=== PATIENT | female | born 1945 | race Caucasian/White ===

== ENCOUNTER → 2019-10-03 13:48 | Outpatient (CLI) | payer MEDICARE, BC, SELFPAY ==
--- NOTE | ~2019-10-03 | MM_ITS ---
EXAMINATION: MM screening bianca RT w rosaura HISTORY: Screening right mammogram, history of left mastectomy TECHNIQUE: Craniocaudal and mediolateral oblique 3-D tomosynthesis images were obtained and synthetic 2-D images were generated. CAD analysis was submitted and interpreted. COMPARISON: 09/12/2018, 08/03/2017, 07/09/2016 BREAST PARENCHYMAL COMPOSITION: There are scattered areas of fibroglandular density. FINDINGS: There is no evidence of suspicious mass, calcification, or architectural distortion to sugg est malignancy in either breast. There has been no suspicious interval change. IMPRESSION: 1. No mammographic evidence of malignancy. 2. Recommend routine screening mammography in one year. BI-RADS Category 1: Negative Reviewed, dictated and finalized at location A. 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
== END ==
PROVIDERS: PCP Internal Medicine Endocrinology, Diabetes & Metabolism; Visit Provider Obstetrics & Gynecology Gynecology
DX: Z12.31 Encounter for screening mammogram for malignant neoplasm of breast (principal)
CPT/HCPCS: 77063; 77067

== ENCOUNTER → 2020-04-25 09:19 | Outpatient (CLI) | payer MEDICARE, BC, SELFPAY ==
--- NOTE | ~2020-04-25 | US_ITS ---
EXAMINATION: US soft tissue head and neck DATE: 04/25/2020 09:34 INDICATION: Left neck mass. Enlarged lymph node. TECHNIQUE: Multiple grayscale and Doppler ultrasound images of the neck were obtained. COMPARISON: None FINDINGS: There is no abnormal mass or lymphadenopathy in the patient's area of concern in left neck. IMPRESSION: 1. No abnormal mass or lymphadenopathy in the patient's area of concern in left neck. Reviewed, dictated and finalized at location B.
== END ==
PROVIDERS: Visit Provider Obstetrics & Gynecology Gynecology
DX: R59.0 Localized enlarged lymph nodes (principal)
CPT/HCPCS: 76536

== ENCOUNTER → 2020-06-17 12:18 | Outpatient (CLI) | payer MEDICARE, BC, SELFPAY ==
--- NOTE | ~2020-06-17 | DEXA_ITS ---
Bone Density Report Name: Ellen Blunt Age: 74 Sex: Female Ethnicity: White Date of : 1945 Indication: osteopenia; monitoring treatment; hysterectomy; postmenopausal Referring Provider: CHARO RUTH Study: Bone densitometry was performed. Exam Date: June 17, 2020 Accession number: [id number] Bone Density: Region BMD T-score Z-score Classification AP Spine (L1-L4) 0.887 -1.5 0.9 Osteopenia Femoral Neck (Left) 0.652 -1.8 0.2 Osteopenia Total Hip (Left) 0.776 -1.4 0.3 Osteopenia Femoral Neck (Right) 0.629 -2.0 0.0 Osteopenia Total Hip (Right) 0.741 -1.7 0.0 Osteopenia Total Hip Mean 0.759 -1.6 0.2 Osteopenia World Health Organization criteria for BMD impression classify patients as: Normal (T-score at or above -1.0), Osteopenia (T-score between -1.0 and -2.5), or Osteoporosis (T-score at or below -2.5). 10-year Fracture Risk: FRAX not reported because: Treated for osteoporosis Previous Exams: Region Exam Age BMD T-score BMD Change BMD Change Date g/cm2 vs Baseline vs Previous AP Spine(L1-L4) 06/17/2020 74 0.887 -1.5 -0.002 0.047* 05/10/2018 72 0.839 -1.9 -0.049* 0.012 07/07/2015 69 0.827 -2.0 -0.062* -0.006 06/22/2013 67 0.833 -1.9 -0.055* -0.065* 01/18/2011 65 0.898 -1.4 0.010 0.018 01/01/2009 63 0.880 -1.5 -0.009 0.044* 10/27/2006 60 0.836 -1.9 -0.053* -0.053* 10/13/2004 58 0.888 -1.4 Total Hip(Left) 06/17/2020 74 0.776 -1.4 -0.059* 0.019 05/10/2018 72 0.757 -1.5 -0.078* -0.010 07/07/2015 69 0.767 -1.4 -0.068* -0.057* 06/22/2013 67 0.825 -1.0 -0.010 -0.006 01/18/2011 65 0.831 -0.9 -0.005 0.028* 01/01/2009 63 0.802 -1.1 -0.033* 0.002 10/27/2006 60 0.800 -1.2 -0.035* -0.035* 10/13/2004 58 0.835 -0.9 Total Hip(Right) 06/17/2020 74 0.741 -1.7 -0.100* 0.003 05/10/2018 72 0.738 -1.7 -0.102* 0.014 07/07/2015 69 0.724 -1.8 -0.116* -0.076* 06/22/2013 67 0.800 -1.2 -0.040* 0.004 01/18/2011 65 0.796 -1.2 -0.044* -0.006 01/01/2009 63 0.803 -1.1 -0.037* 0.015 10/27/2006 60 0.788 -1.3 -0.052* -0.052* 10/13/2004 58 0.840 -0.8 *Denotes significance at 95% confidence level, LSC for AP Spine
== END ==
PROVIDERS: Visit Provider Obstetrics & Gynecology Gynecology
DX: M85.80 Other specified disorders of bone density and structure, unspecified site (principal); Z78.0 Asymptomatic menopausal state; Z13.820 Encounter for screening for osteoporosis
CPT/HCPCS: 77080

== ENCOUNTER → 2020-12-19 10:21 | Outpatient (CLI) | payer MEDICARE, BC, SELFPAY ==
--- NOTE | ~2020-12-19 | MMUS_ITS ---
EXAMINATION: MM diagnostic bianca RT w rosaura, US breast RT limited HISTORY: Painful lump in the upper outer quadrant of the right breast, history of left mastectomy. TECHNIQUE: Craniocaudal, mediolateral, and mediolateral oblique 3-D tomosynthesis images of the right breast were performed and synthetic 2-D images were generated. CAD analysis was submitted and interp reted. High resolution limited right breast ultrasound was performed. COMPARISON: 10/03/2019, 09/12/2018, 08/03/2017 BREAST PARENCHYMAL COMPOSITION: There are scattered areas of fibroglandular density. FINDINGS: MAMMOGRAPHIC FINDINGS: There is no evidence of suspicious mass, calcification, or architectural distortion to suggest malig armida. There has been no suspicious interval change. No mammographic correlate is identified for the reported painful lump of the right breast. ULTRASOUND: There is no evidence of focal abnormal solid or cystic mass in the vicinity of the reported painful r ight breast lump. IMPRESSION: 1. No specific mammographic or sonographic correlate is identified for the reported painful lump of t he right breast. Further evaluation at this time should be based on clinical assessment. Continued fo llow-up physical examination is recommended. 2. Recommend routine screening mammography in one year. BI-RADS Category 1: Negative Reviewed, dictated and finalized at location A. IMPRESSION: 1. No specific mammographic or sonographic correlate is identified for the repo rted painful lump of the right breast. Further evaluation at this time should b e based on clinical assessment. Continued follow-up physical examination is rec ommended. 2. Recommend routine screening mammography in one year. BI-RADS Category 1: Negative
== END ==
PROVIDERS: PCP Internal Medicine; Visit Provider Nurse Practitioner
DX: R92.8 Other abnormal and inconclusive findings on diagnostic imaging of breast (principal)
CPT/HCPCS: 76642; 77061; 77065; G0279

== ENCOUNTER 2022-06-03 01:49 | Day surgery (SDC) | payer MEDICARE, BC, SELFPAY ==
[2022-05-19 08:37] VITALS: BMI 25.2
[2022-06-03 07:51] VITALS: BP 124/82; PULSE 77; RESP 17; TEMP 36.7; O2SAT 96; BMI 25.0
[2022-06-03] MEDS: LACTATED RINGERS 1,000 ML 150 ML IV CONT (08:04)
--- NOTE | 2022-06-03 08:42 | PM.HPGS ---
History of Present Illness History of Present Illness Consent: Risks, benefits, and alternatives have been discussed and questions answered. Patient agrees to proceed with procedure. Chief complaint: Rectal bleeding Narrative: Ellen Blunt is a 76 year old female Presents for colonoscopy. Patient states she has a long history of hemorrhoids. She intermittently will have bright red blood per rectum and rectal tenderness. She notes over the last 1 month that occasionally blood streaks will occur on stool. She presents today for colonoscopy. Patient states that her bowel habits in general are normal and regular. Her family history is significant for a grandparent that may have had colon cancer. Patient presents today for neoplasia screening colonoscopy. Review of Systems Review of Systems: Review of systems noncontributory. [facility] Family History Family History (Updated 04/25/14 @ 07:13 by DOCTOR UNKNOWN) Mother Family history of pancreatic cancer Family history of dementia Father Family history of heart disease in male family member before age 55 Other Family history of arthritis Hypertension Social History Social History Smoking status: Never smoker Alcohol intake: current Alcohol use details: Social use Substance use type: does not use Living arrangements: with family Spiritual care concerns: No Meds Home Medications and Allergies Home Medications Medication Instructions Recorded Confirmed Type coQ10 (ubiquinol) 200 mg capsule 200 mg PO 2XW 05/19/22 06/03/22 History ergocalciferol (vitamin D2) 1,250 50,000 unit PO WEEKLY 05/19/22 06/03/22 History mcg (50,000 unit) capsule escitalopram oxalate 20 mg tablet 20 mg PO DAILY 05/19/22 06/03/22 History magnesium citrate 100 mg tablet 200 mg PO DAILY 05/19/22 06/03/22 History rosuvastatin 10 mg tablet 10 mg PO 4XW 05/19/22 06/03/22 History Allergies Allergy/AdvReac Type Severity Reaction Status Date / Time Penicillins Allergy Unknown Other Verified 06/03/22 07:50 Sulfa (Sulfonamide Allergy Unknown rash Verified 06/03/22 07:50 Antibiotics) sulfanilamide Allergy Unknown Other Verified 06/03/22 07:50 Vital Signs Vital Signs - 24 hr 06/03/22 07:51 Temperature 98.1 F Pulse Rate 77 Respiratory Rate 17 Blood Pressure 124/82 Pulse Oximetry 96 Oxygen Delivery Room Air Exam Narrative: Physical exam reveals patient to be alert. Vital signs stable. HEENT exam is unremarkable. Patient is anicteric. Lungs are clear to auscultation and percussion. Heart is without murmur or extra sounds. Abdomen bowel sounds are present soft nontender with no organomegaly. Digital external rectal exam is normal. Assessment and Plan Assessment and plan (1) Rectal bleeding: Code(s): K62.5 - Hemorrhage of anus and rectum Status: Acute Assessment and Plan: Patient has rectal bleeding most consistent with hemorrhoids. Plan is for colonoscopy to exclude additional lesions. Highfiber, stool softener suggested. Anusol or similar soothing cream is advised. Would consider surgical therapy if no other lesions identified.
[2022-06-03 09:17] VITALS: BP 112/62; PULSE 63; RESP 13; O2SAT 99
[2022-06-03 09:27] VITALS: BP 112/54; PULSE 57; RESP 14; O2SAT 98
[2022-06-03 09:37] VITALS: BP 116/66; PULSE 61; RESP 19; O2SAT 98
== END 2022-06-03 09:42 | disposition home or self-care (01) ==
PROVIDERS: PCP Internal Medicine; Visit Provider Internal Medicine Gastroenterology
PROC: 0DJD8ZZ Inspection of Lower Intestinal Tract, Via Natural or Artificial Opening Endoscopic (ICD-10-PCS; CPT 45378; principal; 2022-06-03 09:00)
DX: K62.5 Hemorrhage of anus and rectum (principal); K64.8 Other hemorrhoids; K64.4 Residual hemorrhoidal skin tags
CPT/HCPCS: 45378; J2704; J7120

== ENCOUNTER → 2022-11-25 10:57 | Outpatient (CLI) | payer MEDICARE, BC, SELFPAY ==
--- NOTE | ~2022-11-25 | DEXA_ITS ---
Bone Density Report Name: Ellen Blunt Age: 76 Sex: Female Ethnicity: White Date of : 1945 Indication: osteopenia; hysterectomy; postmenopausal Referring Provider: CHARO RUTH Study: Bone densitometry was performed. Exam Date: November 25, 2022 Accession number: [id number] Bone Density: Region BMD T-score Z-score Classification AP Spine (L1-L4) 0.876 -1.6 0.9 Osteopenia Femoral Neck (Left) 0.650 -1.8 0.3 Osteopenia Total Hip (Left) 0.768 -1.4 0.4 Osteopenia Femoral Neck (Right) 0.659 -1.7 0.4 Osteopenia Total Hip (Right) 0.737 -1.7 0.1 Osteopenia Total Hip Mean 0.753 -1.6 0.3 Osteopenia World Health Organization criteria for BMD impression classify patients as: Normal (T-score at or above -1.0), Osteopenia (T-score between -1.0 and -2.5), or Osteoporosis (T-score at or below -2.5). 10-year Fracture Risk(1): Major Osteoporotic Fracture 13% Hip Fracture 2.9% Reported Risk Factors: [place] (), Neck BMD=0.659, BMI=25.7 (1) FRAX(R) Version 3.08. Fracture probability calculated for an untreated patient. Fracture probability may be lower if the patient has received treatment. Previous Exams: Region Exam Age BMD T-score BMD Change BMD Change Date g/cm2 vs Baseline vs Previous AP Spine(L1-L4) 11/25/2022 76 0.876 -1.6 -0.013 -0.011 06/17/2020 74 0.887 -1.5 -0.002 0.047* 05/10/2018 72 0.839 -1.9 -0.049* 0.012 07/07/2015 69 0.827 -2.0 -0.062* -0.006 06/22/2013 67 0.833 -1.9 -0.055* -0.065* 01/18/2011 65 0.898 -1.4 0.010 0.018 01/01/2009 63 0.880 -1.5 -0.009 0.044* 10/27/2006 60 0.836 -1.9 -0.053* -0.053* 10/13/2004 58 0.888 -1.4 Total Hip(Left) 11/25/2022 76 0.768 -1.4 -0.068* -0.009 06/17/2020 74 0.776 -1.4 -0.059* 0.019 05/10/2018 72 0.757 -1.5 -0.078* -0.010 07/07/2015 69 0.767 -1.4 -0.068* -0.057* 06/22/2013 67 0.825 -1.0 -0.010 -0.006 01/18/2011 65 0.831 -0.9 -0.005 0.028* 01/01/2009 63 0.802 -1.1 -0.033* 0.002 10/27/2006 60 0.800 -1.2 -0.035* -0.035* 10/13/2004 58 0.835 -0.9 Total Hip(Right) 11/25/2022 76 0.737 -1.7 -0.104* -0.004 06/17/2020 74 0.741 -1.7 -0.100* 0.003 05/10/2018 72 0.738 -1.7 -0.102* 0.014 07/07/2015 69 0.724 -1.8 -0.116* -0.076* 06/22/2013 67 0.8
== END ==
PROVIDERS: PCP Internal Medicine; Visit Provider Obstetrics & Gynecology Gynecology
DX: Z78.0 Asymptomatic menopausal state (principal); M85.88 Other specified disorders of bone density and structure, other site; M85.852 Other specified disorders of bone density and structure, left thigh; M85.851 Other specified disorders of bone density and structure, right thigh
CPT/HCPCS: 77080

== ENCOUNTER 2022-12-21 15:31 | Emergency (ER) | payer MEDICARE, BC, SELFPAY ==
[2022-12-21] VITALS (16 sets, daily range): BP systolic 127–174; BP diastolic 68–86; PULSE 59–72; RESP 11–19; TEMP 36.3–36.4; O2SAT 96–100
--- NOTE | ~2022-12-21 | CT_ITS ---
EXAMINATION: CT abdomen pelvis w con DATE: 12/21/2022 19:17 INDICATION: abdominal pain TECHNIQUE: Computed tomography (CT) of the abdomen and pelvis was performed with 100 mL Omnipaque-350 intravenous contrast. Automated exposure control and iterative reconstruction technique were employe d. The dose-length product was 311.89 mGy-cm. COMPARISON: CT abdomen and pelvis 11/29/2018, 04/12/2018 CT abdomen 11/26/2007. FINDINGS: Lower thorax: Small hiatal hernia. Mild senescent changes in the lungs. Liver: Normal. Biliary/Gallbladder: Gallbladder is normal. No bile duct dilation. 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 Spleen: Normal. Adrenals:No mass. Kidneys: Bilateral hypodensities that are too small to characterize but most likely represent cystsNo . Suspicious mass, stone, or hydronephrosis. GI tract: Mild distal esophageal and gastric wall edema. No small or large bowel dilation. Normal johnathan endix. Mesentery/Peritoneum: No ascites, mass, or free air. Retroperitoneum: No mass. Mild atherosclerotic abdominal aortic and/or arterial calcifications. Pelvis: Absent uterus. Mild bladder wall thickening and inflammatory change. Soft Tissues: Soft tissues and body wall unremarkable. Bones: No acute osseous finding. IMPRESSION: Mild esophagitis/gastritis. Mild bladder wall thickening and inflammatory change possibly representin g cystitis, correlate with urinalysis. Otherwise, no acute abdominopelvic process detected Reviewed, dictated and finalized at location K. IMPRESSION: Mild esophagitis/gastritis. Mild bladder wall thickening and inflammatory murillo e possibly representing cystitis, correlate with urinalysis. Otherwise, no acut e abdominopelvic process detected
[2022-12-21 16:39] LABS: Basophils Absolute Auto 0.1 K/mm3 (0.0-0.1); Basophils Percent Auto 0.6 % (0.2-1.2); Eosinophils Absolute Auto 0.2 K/mm3 (0-0.3); Eosinophils Percent Auto 2.2 % (0-4.4); Hematocrit 39.4 % (37.0-47.0); Hemoglobin 12.7 g/dL (12.0-15.0); Immature Granulocyte Absolute 0.02 K/mm3 (0.00-0.031); Immature Granulocyte Percent A 0.2 % (0-0.5); Lymphocytes Absolute Auto 2.38 K/mm3 (0.9-3.2); Lymphocytes Percent Auto 28.8 % (18.3-44.2); Mean Corpuscular HGB Conc 32.2 g/dl (32-36); Mean Corpuscular Hemoglobin 30.6 pg (26-34); Mean Corpuscular Volume 94.9 fl (80-100); Mean Platelet Volume 10.6 fl (7.4-10.4); Monocytes Absolute Auto 0.6 K/mm3 (0.1-0.6); Monocytes Percent Auto 6.9 % (2.6-8.5); Neutrophils Absolute Auto 5.1 K/mm3 (1.3-6.7); Neutrophils Percent Auto 61.3 % (45.5-73.1); Platelet Count Result 292 k/mm3 (150-375); Red Blood Count 4.15 M/mm3 (4.2-5.4); White Blood Count 8.3 K/mm3 (4.5-10.0)
[2022-12-21 16:50] LABS: Alanine Aminotransferase 23 U/L (6-35); Albumin Level 4.7 g/dL (3.5-5.1); Alkaline Phosphatase 69 U/L (38-126); Anion Gap 8 mmol/L (8-16); Aspartate Amino Transferase 30 U/L (14-36); Bilirubin,Total 0.5 mg/dL (0.2-1.3); Blood Urea Nitrogen 13 mg/dL (7-17); Calcium 9.3 mg/dL (8.4-10.2); Carbon Dioxide 32 mmol/L (22-30); Chloride 101 mmol/L (98-107); Estimated CRCL calculation 59 ml/min; Estimated Glomerular Filt Rate > 60; Glucose 90 mg/dL (65-110); Lipase 87 U/L (23-300); Potassium 4.1 mmol/L (3.4-5.0); Sodium 141 mmol/L (137-145)
[2022-12-21 17:56] LABS: Appearance Urine Clear (Clear); Bilirubin Urine Negative (Negative); Blood Urine Negative (Negative); Color Urine Yellow (Yellow); Glucose Urine UA Negative (Negative); Ketones Urine Negative (Negative); Leukocyte Esterase Ur Negative LEU/UL (Negative); Nitrate Urine Negative (Negative); Protein Urine Negative (Negative); Specific Grav Ur 1.012 (1.001-1.035); Urobilinogen Urine 0.2 mg/dL (<2.0); pH Urine 7.5 (5.0-9.0)
[2022-12-21 18:01] LABS: Add Urine Microscopic? NO
--- NOTE | 2022-12-21 18:25 | ED.GENADULT ---
HPI - General Adult General Chief complaint: Abdominal Pain Stated complaint: left abd pain Time Seen by Provider: 12/21/22 18:08 History of Present Illness HPI narrative: 76 yo female presents for eval of L sided abominal pain since this am. No N/V and she had a good BM this am. Related Data Home Medications Medication Instructions Recorded Confirmed coQ10 (ubiquinol) 200 mg capsule 200 mg PO 2XW 05/19/22 06/03/22 ergocalciferol (vitamin D2) 1,250 50,000 unit PO WEEKLY 05/19/22 06/03/22 mcg (50,000 unit) capsule escitalopram oxalate 20 mg tablet 20 mg PO DAILY 05/19/22 06/03/22 magnesium citrate 100 mg tablet 200 mg PO DAILY 05/19/22 06/03/22 rosuvastatin 10 mg tablet 10 mg PO 4XW 05/19/22 06/03/22 Allergies Allergy/AdvReac Type Severity Reaction Status Date / Time Penicillins Allergy Unknown Other Verified 06/03/22 07:50 Sulfa (Sulfonamide Allergy Unknown rash Verified 06/03/22 07:50 Antibiotics) sulfanilamide Allergy Unknown Other Verified 06/03/22 07:50 Review of Systems Review of Systems: CONSTITUTIONAL: Denies fever, chills, or sweats. EYES: Denies visual changes, redness, or discharge. ENT: Denies rhinorrhea, congestion, sore throat, or otalgia. CARDIOVASCULAR: Denies chest pain, palpitations, or edema. RESPIRATORY: Denies cough or dyspnea. GASTROINTESTINAL: Denies abdominal pain, nausea, vomiting, or diarrhea. GENITOURINARY: Denies dysuria or hematuria. SKIN: Denies rash or itching. MUSCULOSKELETAL: Denies back pain, joint pain, or myalgia. NEUROLOGIC: Denies headache, numbness, or weakness. PSYCHIATRIC: Denies anxiety or depression. [facility] Family History Family History (Updated 04/25/14 @ 07:13 by DOCTOR UNKNOWN) Mother Family history of pancreatic cancer Family history of dementia Father Family history of heart disease in male family member before age 55 Other Family history of arthritis Hypertension Social History Social History Smoking status: Never smoker Alcohol intake: current Alcohol use details: Social use Substance use type: does not use Living arrangements: with family Spiritual care concerns: No Exam Narrative: GENERAL: Well-appearing, well-nourished, and in no acute distress. HEAD: Normocephalic, atraumatic. EYES: PERRLA and EOMI. ENT: Nares clear, no rhinorrhea or epistaxis. Mucous membranes moist. NECK: Supple. CHEST: Clear to auscultation. No respiratory distress. HEART: Regular rate and rhythm. No murmur heard. Normal peripheral pulses. ABDOMEN: Soft, right-sided tenderness, nondistended, normal active bowel sounds. EXTREMITIES: Normal range of motion. No edema. SKIN: Warm, dry, no rash. NEURO: No focal deficits. Alert and oriented x3. PSYCH: Normal mood and affect. Course Vital Signs Vital signs: Vital Signs Temperature 97.5 F L 12/21/22 15:34 Pulse Rate 72 12/21/22 15:34 Respiratory Rate 18 12/21/22 15:34 Blood Pressure 165/86 H 12/21/22 15:34 Pulse Oximetry 98 12/21/22 15:34 Oxygen Delivery Room Air 12/21/22 15:34 Temperature 97.3 F L 12/21/22 18:20 Pulse Rate 65 12/21/22 20:06 Respiratory Rate 17 12/21/22 20:06 Blood Pressure 151/71 H 12/21/22 20:06 Pulse Oximetry 100 12/21/22 20:06 Oxygen Delivery Room Air 12/21/22 18:20 Medical Decision Making [facility] Narrative Medical decision making narrative: 76-year-old female with previous fat graft from her abdomen for breast augmentation presents for evaluation of left-sided abdominal pain since this morning. TTP on exam. Screening labs and CT abdomen pelvis have been ordered. labs are unremarkable, vitals normal CT a/p pending IMPRESSION: Mild esophagitis/gastritis. Mild bladder wall thickening and inflammatory change possibly representing cystitis, correlate with urinalysis. Otherwise, no acute abdominopelvic process detected UA not indicative of cystitis and this would not be con
[2022-12-21] MEDS: MORPHINE SULFATE (*CRX) 2 MG/ML INJ IV PUSH (20:39)
== END 2022-12-21 21:26 | disposition home or self-care (01) ==
PROVIDERS: Emergency Provider Emergency Medicine; PCP Internal Medicine
DX: R10.9 Unspecified abdominal pain (principal)
CPT/HCPCS: 36415; 74177; 80053; 81003; 83690; 85025; 96374; 99284; J2270; Q9967

== ENCOUNTER 2023-04-25 11:35 | Outpatient (CLI) | payer MEDICARE, BC, SELFPAY ==
--- NOTE | ~2023-04-25 | XR_ITS ---
Left wrist Technique: PA, oblique, lateral, and ulnar deviation views were obtained. Clinical History: Ulnar swelling Findings: No acute fracture or dislocation is seen. Osseous alignment is anatomic. Joint spaces are p reserved. Soft tissues are unremarkable. Impression: Unremarkable left wrist radiographs. Reviewed, dictated and finalized at location . Impression: Unremarkable left wrist radiographs.
== END 2023-04-25 11:36 | disposition home or self-care (01) ==
PROVIDERS: PCP Internal Medicine; Visit Provider Plastic Surgery
DX: M19.032 Primary osteoarthritis, left wrist (principal)
CPT/HCPCS: 73110

== ENCOUNTER 2023-06-26 08:20 | Observation (INO) | payer MEDICARE, BC, SELFPAY ==
[2023-06-26] VITALS (13 sets, daily range): BP systolic 92–159; BP diastolic 55–93; PULSE 64–81; RESP 13–19; TEMP 36.1–36.5; O2SAT 94–100; BMI 25.4
--- NOTE | ~2023-06-26 | CT_ITS ---
EXAMINATION: CTA chest abdomen pelvis DATE: 06/26/2023 09:05 INDICATION: Chest and epigastric abdominal pain, pressure. TECHNIQUE: Computed tomography (CT) of the chest, abdomen, and pelvis was performed with 100 CC Omnip aque 350 intravenous contrast. Automated exposure control and iterative reconstruction technique were employed. Exam dose: 522.25 mGy-cm total exam DLP. COMPARISON: 06/26/2023 2 view chest is not available at this time 12/21/2022 CT abdomen pelvis FINDINGS: CHEST CT: Prominent bilateral apical scarring, particularly involving both posterior apical areas, right greate r than left. No pulmonary infiltrate or consolidation or pulmonary mass lesion is noted otherwise. No thoracic aortic aneurysm or dissection. No evidence of pulmonary embolism. No hilar or mediastinal mass lesion or lymphadenopathy. Heart size is within normal range. No pericardial or pleural effusion. Small sliding hiatal hernia. ABDOMEN/PELVIS CT: Diffuse hepatic steatosis. No hepatic, splenic or pancreatic space-occupying mass lesion. The gallbla dder appears unremarkable. No bile duct or pancreatic duct dilatation. Normal morphology of the adrenal glands. No renal mass lesion or urinary tract calculus or hydroureteronephrosis. The urinary bladder appears unremarkable. Status post hysterectomy. Mild colonic diverticulosis; no CT evidence of diverticulitis. Normal appendix. Fluid levels in the c ecum and ascending colon may indicate enterocolitis. No bowel obstruction, bowel wall thickening, pneumatosis or intraperitoneal free air. There is atherosclerotic calcification but normal caliber of the abdominal aorta. No abdominal aortic dissection. No intraperitoneal or retroperitoneal or pelvic mass lesion or adenopathy or ascites. Severe atrophy or failure of development of the right rectus abdominis muscle. Moderately severe degenerative disc disease at L2-3 and L5-S1. No suspicious osteolytic or osteoblast ic lesions are noted. IMPRESSION: No thoracic or abdominal aortic aneurysm or dissection Bilateral apical scarring Hepatic steatosis Diverticulosis of the colon Normal appendix Fluid levels in the cecum and ascending colon which may indicate enterocolitis Reviewed, dictated and finalized at [facility]. Reviewed, dictated and finalized at location A.
--- NOTE | ~2023-06-26 | XR_ITS ---
XR chest 2V DATE: 06/26/2023 09:11 INDICATION: Chest pressure this morning. TECHNIQUE: AP and lateral views COMPARISON: 02/10/2016 2 view chest 09/20/2008 portable AP chest FINDINGS: Moderate bilateral hyperinflation. Mild bilateral apical scarring is suggested. No pulmonar y infiltrate or consolidation, pulmonary vascular congestion or pleural effusion is detected. There are surgical clips in the left axillary region consistent with prior axillary node dissection. There is diffuse osteopenia. IMPRESSION: No active cardiopulmonary disease Status post left axillary node dissection Osteopenia Reviewed, dictated and finalized at location A.
--- NOTE | ~2023-06-26 | NM_ITS ---
EXAMINATION: NM jonathan stress w perfusion DATE: 06/27/2023 12:41 INDICATION: Chest pain TECHNIQUE: Rest images were obtained following intravenous administration of 9 mCi Tc99m tetrofosmin (Myoview). The patient was infused intravenously with Lexiscan (Regadenoson). Then, 28.6 mCi Tc99m te trofosmin (Myoview) was administered intravenously, and stress images were obtained. Data was reconst ructed into short axis and horizontal and vertical long axis SPECT images. Gated SPECT images were al so obtained. COMPARISON: None. FINDINGS: There is no definite reversible or fixed perfusion abnormality to suggest ischemia or infar ction. There is normal left ventricular chamber size, wall motion and ejection fraction. Left ventr icular ejection fraction measures 65%. IMPRESSION: 1. Normal myocardial perfusion at rest and during stress. 2. Left ventricular ejection fraction measuring 65%. Reviewed, dictated and finalized at location A.
--- NOTE | 2023-06-26 08:22 | ECG_ITS ---
Measurements Intervals [place] Rate: 78 P: 38 SC: 161 QRS: 0 QRSD: 113 T: 36 QT: 405 QTc: 463 Interpretive Statements SINUS RHYTHM BASELINE ARTIFACT SEPTAL MYOCARDIAL INFARCTION , OF INDETERMINATE AGE [40+ ms Q WAVE IN V1/V2] ABNORMAL ECG NO PREVIOUS ECG AVAILABLE FOR COMPARISON Electronically Signed On 06-26-2023 13:47:46 CDT by Frankie Noyola M.D.
[2023-06-26 08:34] LABS: Basophils Absolute Auto 0.1 K/mm3 (0.0-0.1); Basophils Percent Auto 0.7 % (0.2-1.2); Eosinophils Absolute Auto 0.2 K/mm3 (0-0.3); Eosinophils Percent Auto 2.2 % (0-4.4); Hematocrit 42.8 % (37.0-47.0); Hemoglobin 13.9 g/dL (12.0-15.0); Immature Granulocyte Absolute 0.02 K/mm3 (0.00-0.031); Immature Granulocyte Percent A 0.3 % (0-0.5); Lymphocytes Absolute Auto 2.03 K/mm3 (0.9-3.2); Mean Corpuscular HGB Conc 32.5 g/dl (32-36); Mean Corpuscular Hemoglobin 31.1 pg (26-34); Mean Corpuscular Volume 95.7 fl (80-100); Mean Platelet Volume 10.7 fl (7.4-10.4); Monocytes Absolute Auto 0.5 K/mm3 (0.1-0.6); Monocytes Percent Auto 7.2 % (2.6-8.5); Neutrophils Absolute Auto 4.5 K/mm3 (1.3-6.7); Neutrophils Percent Auto 61.6 % (45.5-73.1); Platelet Count Result 277 k/mm3 (150-375); Red Blood Count 4.47 M/mm3 (4.2-5.4); Red Cell Distribution Width 13.9 % (11.5-14.5); White Blood Count 7.3 K/mm3 (4.5-10.0)
[2023-06-26 08:44] LABS: Alanine Aminotransferase 23 U/L (6-35); Albumin Level 4.8 g/dL (3.5-5.1); Alkaline Phosphatase 78 U/L (38-126); Anion Gap 9 mmol/L (8-16); Aspartate Amino Transferase 29 U/L (14-36); Bilirubin,Total 0.7 mg/dL (0.2-1.3); Blood Urea Nitrogen 12 mg/dL (7-17); Calcium 9.6 mg/dL (8.4-10.2); Carbon Dioxide 26 mmol/L (22-30); Chloride 104 mmol/L (98-107); Estimated CRCL calculation 54 ml/min; Estimated Glomerular Filt Rate > 60; Glucose 105 mg/dL (65-110); Lipase 441 U/L (23-300); Sodium 139 mmol/L (137-145)
--- NOTE | 2023-06-26 08:47 | ED.CHESTPAIN ---
HPI - Chest Pain General Chief Complaint: Chest Pain Stated Complaint: CHEST PAIN Time Seen by Provider: 06/26/23 08:31 History of Present Illness HPI narrative: This is a 77-year-old female, with history of breast cancer, who presents emergency department complaining of chest pain. The patient states she woke this morning at approximately 730 and noticed significant chest heaviness, rated 7/10. She states the sensation goes towards her back as well as her abdomen. She denies associated weakness, numbness or loss of consciousness Related Data Home Medications Medication Instructions Recorded Confirmed ergocalciferol (vitamin D2) 1,250 50,000 unit PO WEEKLY 05/19/22 06/03/22 mcg (50,000 unit) capsule rosuvastatin 10 mg tablet 10 mg PO 4XW 05/19/22 06/03/22 cyclosporine 0.05 % eye drops in a drp 06/26/23 dropperette escitalopram oxalate 10 mg tablet 10 mg PO DAILY 06/26/23 06/26/23 multivit with minerals-iron 18 1 tablet PO DAILY 06/26/23 06/26/23 mg-folic ac 400 mcg-vit K 25 mcg tablet (Adults Multivitamin) Allergies Allergy/AdvReac Type Severity Reaction Status Date / Time Penicillins Allergy Unknown Other Verified 06/26/23 08:31 Sulfa (Sulfonamide Allergy Unknown rash Verified 06/26/23 08:31 Antibiotics) sulfanilamide Allergy Unknown Other Verified 06/26/23 08:31 Review of Systems Review of Systems: CONSTITUTIONAL: Denies fever, chills, or sweats. CARDIOVASCULAR: Chest pain denies palpitations, or edema. RESPIRATORY: Denies cough or dyspnea. GASTROINTESTINAL: Epigastric abdominal pain denies nausea, vomiting, or diarrhea. GENITOURINARY: Denies dysuria or hematuria. SKIN: Denies rash or itching. MUSCULOSKELETAL: Back pain denies joint pain, or myalgia. NEUROLOGIC: Denies headache, numbness, dizziness, or weakness. PSYCHIATRIC: Denies anxiety or depression. [facility] Past Medical History Medical History (Updated 06/26/23 @ 13:12 by Deanna Sparks PA-C) Cancer of left breast Lymphedema Mixed hyperlipidemia Surgical History Surgical History History of left mastectomy Family History Family History Mother Family history of pancreatic cancer Family history of dementia Father Family history of heart disease in male family member before age 55 Other Family history of arthritis Hypertension Social History Social History (Updated 06/26/23 @ 13:13 by Deanna Sparks PA-C) Social History: Surrogate medical decision maker: Douglas Blunt, spouse. Code status: Full code. Smoking status: Never smoker Alcohol intake: current Alcohol use details: Social alcohol use in moderation. Substance use type: does not use Living arrangements: with family Spiritual care concerns: No Exam Narrative: GENERAL: Well-developed, well-nourished, and in no acute distress. HEAD: Normocephalic, atraumatic. EYES: PERRLA and EOMI. ENT: Nares clear, no rhinorrhea or epistaxis. Mucous membranes moist. Oropharynx without tonsillar hypertrophy exudate or other lesions. Bilateral TMs pearly church nonbulging NECK: Supple. No adenopathy or masses. No carotid bruits or JVD CHEST: Clear to auscultation. No respiratory distress. No wheezes rales or rhonchi HEART: Regular rate and rhythm. No murmur heard. Normal peripheral pulses. ABDOMEN: Soft, nontender, nondistended, normal active bowel sounds. EXTREMITIES: Normal range of motion. No edema. SKIN: Warm, dry, no rash. NEURO: Alert and oriented x3. Moving all 4 limbs purposefully. PSYCH: Normal mood and affect. Course Course Emergency Course: 08:45 - Bedside ultrasound by me is not immediately concerning for dissection of the abdominal aorta. I am concerned for dissection. Will obtain CTA. 10:15 - EKG not concerning for ischemia. Initial troponin negative. CTA not concerning for dissection. Initial troponin negat
[2023-06-26 08:48] LABS: Prothrombin Time 13.1 Seconds (11.1-14.7)
[2023-06-26 08:49] LABS: Partial Thromboplastin Time 31.9 SECONDS (22.3-36.8)
[2023-06-26] MEDS: MORPHINE SULFATE (*CRX) 4 MG/ML INJ IV PUSH (08:52)
[2023-06-26] MEDS: ONDANSETRON INJ 4 MG/2 ML VIAL IV PUSH (08:52)
[2023-06-26 08:55] LABS: Troponin I < 0.012 ng/mL (0.000-0.034)
[2023-06-26] MEDS: NITROGLYCERIN SL 0.4 MG TABLET SUBLINGUAL (09:46)
--- NOTE | 2023-06-26 09:51 | PC.NURSE ---
pt states chest pain decreased to 3/10. states much improved after the nitro.
[2023-06-26 11:49] LABS: Troponin I < 0.012 ng/mL (0.000-0.034)
[2023-06-26] MEDS: ASPIRIN 81 MG CHEWABLE TABLET 324 MG PO (12:00)
--- NOTE | 2023-06-26 13:04 | PM.IMHP ---
H&P: HPI History of Present Illness Date/Time: 06/26/23 13:15 Chief Complaint: Chest pain. Narrative: This is a very pleasant 77-year-old female with history of breast cancer and hyperlipidemia who presented to the emergency department via private vehicle from home for evaluation of chest pain. The patient provides the following history. She felt fine when she went to bed last evening. Upon waking this morning at about 07:30 she noticed a heaviness or pressure-like sensation in the substernal chest region which was pretty intense. Over the next hour it seemed to radiate through to the back and it has settled more so in the low chest/upper abdominal area. She felt somewhat short of breath with that and also endorses mild nausea. Her symptoms improved after receiving aspirin and morphine in the emergency department though she continues to have discomfort, can more so in the upper abdominal area. More recently she has been increasingly fatigued which is unusual for her as she is a busy an active person. She has not noticed any chest discomfort or shortness of breath with exertion. She has occasional indigestion but the symptoms are not at all similar. She denies syncope, near syncope, sweats, pleuritic pain, sensations of racing heart, lower extremity edema, and vomiting. No history of peptic ulcers. She denies melena and hematochezia. She has no personal history of coronary disease but reports that her father had bypass surgery at age 85 and her son had bypass at the age of 35 however that sounds as though was related to coronary artery dissection. In the ED: She was afebrile on arrival with stable vital signs. CMP and CBC were unremarkable. Lipase was a bit elevated at 441. Initial troponin was normal. EKG showed a sinus rhythm with a rate of 78, normal axis, septal myocardial infarction of indeterminate age. Chest x-ray showed no active cardiopulmonary disease. CTA of the chest, abdomen, and pelvis showed no evidence of aortic aneurysm or dissection. Fluid levels noted in the cecum and ascending colon which may indicate enterocolitis though with further questioning she has not had any symptoms to suggest this diagnosis. The patient is being admitted for close monitoring and to rule out acute coronary syndrome given her elevated heart score. Review of Systems Review of Systems: Twelve systems were reviewed and are negative except for as per HPI. [facility] Past Medical History Medical History Cancer of left breast Lymphedema Mixed hyperlipidemia Surgical History Surgical History (Updated 06/26/23 @ 20:52 by Deanna Sparks PA-C) History of bunionectomy of both great toes History of cataract extraction History of left mastectomy Status post transverse rectus abdominis muscle flap breast reconstruction Family History Family History Mother Family history of pancreatic cancer Family history of dementia Father Family history of heart disease in male family member before age 55 Other Family history of arthritis Hypertension Social History Social History (Updated 06/26/23 @ 20:52 by Deanna Sparks PA-C) Social History: Surrogate medical decision maker: Douglas Blunt, spouse. Code status: Full code. Smoking status: Never smoker Alcohol intake: never Alcohol use details: Social alcohol use in moderation. Substance use: never Substance use type: does not use Lack of Transportation: No Lack of Food: Never True Current Housing: I Have Housing Concerned About Future Housing: No Difficulty Paying Gas/Electric Bills: No Difficulty Paying for Meds: No Currently Unemployed: No Education: High School Diploma/GED Difficulty w/ Childcare or Family Care: No Living arrangements: with family Additional living arrangements comments: Lives with spouse in [place]. They have 3 children. Additional
--- NOTE | 2023-06-26 13:30 | PC.NURSE ---
admission orders written. waiting bed assignment.
[2023-06-26 15:10] LABS: Troponin I < 0.012 ng/mL (0.000-0.034)
--- NOTE | 2023-06-26 17:43 | ADMGEN ---
This patient, Ellen Blunt, was admitted to IMU Room 207-01. Patient/family oriented to hospital policies and general routines including ID bracelet, bed and alarms, visiting hours, pain management, procedures, bathroom and other care routines, personal items, smoking policy, room service/diet, and visiting hours. Information on how to activate the Rapid Response Team has been discussed. Patient/Family are encouraged to report perceived risks to care and to ask questions if they do not understand what they are told or what they should do.
[2023-06-26 20:32] LABS: Alanine Aminotransferase 21 U/L (6-35); Albumin Level 4.4 g/dL (3.5-5.1); Alkaline Phosphatase 70 U/L (38-126); Amylase 104 U/L (30-110); Aspartate Amino Transferase 29 U/L (14-36); Bilirubin,Total 0.7 mg/dL (0.2-1.3); Lipase 206 U/L (23-300)
[2023-06-26] MEDS: LACTATED RINGERS 1,000 ML 100 ML IV CONT (21:21)
[2023-06-26] MEDS: cycloSPORINE 0.4 ML OPHTH SOLUTION 1 DROP EACH EYE (21:21)
[2023-06-26] MEDS: ROSUVASTATIN 10 MG TABLET PO (21:21)
[2023-06-27] VITALS (10 sets, daily range): BP systolic 123–133; BP diastolic 60–69; PULSE 63–87; RESP 17–18; TEMP 36.5–36.7; O2SAT 94–95
[2023-06-27] MEDS: ACETAMINOPHEN 325 MG TABLET 650 MG PO (02:19)
[2023-06-27 04:58] LABS: Basophils Percent Auto 0.6 % (0.2-1.2); Eosinophils Absolute Auto 0.2 K/mm3 (0-0.3); Eosinophils Percent Auto 2.3 % (0-4.4); Hematocrit 37.6 % (37.0-47.0); Hemoglobin 11.9 g/dL (12.0-15.0); Immature Granulocyte Absolute 0.02 K/mm3 (0.00-0.031); Immature Granulocyte Percent A 0.3 % (0-0.5); Lymphocytes Absolute Auto 1.75 K/mm3 (0.9-3.2); Lymphocytes Percent Auto 24.2 % (18.3-44.2); Mean Corpuscular HGB Conc 31.6 g/dl (32-36); Mean Corpuscular Hemoglobin 30.7 pg (26-34); Mean Corpuscular Volume 96.9 fl (80-100); Mean Platelet Volume 11.1 fl (7.4-10.4); Monocytes Absolute Auto 0.5 K/mm3 (0.1-0.6); Monocytes Percent Auto 6.5 % (2.6-8.5); Neutrophils Absolute Auto 4.8 K/mm3 (1.3-6.7); Neutrophils Percent Auto 66.1 % (45.5-73.1); Platelet Count Result 237 k/mm3 (150-375); Red Blood Count 3.88 M/mm3 (4.2-5.4); Red Cell Distribution Width 13.9 % (11.5-14.5); White Blood Count 7.2 K/mm3 (4.5-10.0)
[2023-06-27 05:14] LABS: Anion Gap 5 mmol/L (8-16); Blood Urea Nitrogen 8 mg/dL (7-17); Calcium 8.6 mg/dL (8.4-10.2); Carbon Dioxide 27 mmol/L (22-30); Chloride 104 mmol/L (98-107); Estimated CRCL calculation 54 ml/min; Estimated Glomerular Filt Rate > 60; Glucose 97 mg/dL (65-110); Lipase 76 U/L (23-300); Magnesium 2.1 mg/dL (1.6-2.3); Potassium 3.8 mmol/L (3.4-5.0); Sodium 136 mmol/L (137-145)
[2023-06-27] MEDS: LACTATED RINGERS 1,000 ML 100 ML IV CONT (07:15)
--- NOTE | 2023-06-27 07:33 | EST_ITS ---
Patient Info Name: Ellen Blunt Age: 77 years : 1945 Gender: Female Ht: 62 in Wt: 138 lbs BSA: 1.67 m2 HR: 67 bpm BP: 125 / 64 mmHg Heart Rhythm: Sinus Rhythm Exam Date: 06/27/2023 11:47 AM Exam Location: [facility] Stress Patient Status: Inpatient Admit Date: 06/26/2023 Staff Ordering Physician: Colten Hoffmann MD Attending Provider: Jazmyn Najera MD Exercise Technologist: Janay Ortiz CT Exercise Physician: Handy Do DO Exam Type: CA stress jonathan w NM Study Info Indications R07.89 - Other chest pain A regadenoson stress test was performed. Summary 1. 1. Negative lexiscan stress test for ischemic ST changes by ECG criteria. 2. 2. Stable hemodynamics throughout the test. 3. 3. Nuclear scan to follow and will be reported separately. Please correlate with it. 4. 4. Patient informed of the above results. Protocol: Lexiscan Stress ECG Details Stage: REST Duration (min): 1 min : 0 sec HR (bpm): 64 SBP (mmHg): 125 DBP (mmHg): 64 Stage: REST Duration (min): 7 min : 46 sec HR (bpm): 68 SBP (mmHg): 129 DBP (mmHg): 63 Stage: STAGE 1 Duration (min): 0 min : 59 sec HR (bpm): 100 SBP (mmHg): 129 DBP (mmHg): 63 Stage: RECOVERY Duration (min): 1 min : 0 sec HR (bpm): 101 SBP (mmHg): 129 DBP (mmHg): 63 Stage: RECOVERY Duration (min): 2 min : 0 sec HR (bpm): 100 SBP (mmHg): 129 DBP (mmHg): 63 Stage: RECOVERY Duration (min): 3 min : 0 sec HR (bpm): 98 SBP (mmHg): 145 DBP (mmHg): 69 Stage: RECOVERY Duration (min): 3 min : 7 sec HR (bpm): 96 SBP (mmHg): 145 DBP (mmHg): 69 Stage: RECOVERY Duration (min): 3 min : 14 sec HR (bpm): 97 SBP (mmHg): 145 DBP (mmHg): 69 Rest HR: 68 bpm Peak HR: 104 bpm Rest Sys BP: 129 mmHg Peak Sys BP: 145 mmHg Max Pred HR: 144 bpm % Max Pred HR: 72 % Target HR: 122 bpm Max RPP: 15,080 bpm*mmHg Termination Reason: Completed protocol Cardiac Symptoms: Shortness of breath Total Time: 1 min : 0 sec Rest Chanel BP: 63 mmHg Peak Chanel BP: 69 mmHg Total Dose: 0.4 mg Resting ECG Sinus rhythm, cannot r/o septal infarct, age indeterminate. Stress ECG No ST changes. Arrhythmias None. Report Signatures
[2023-06-27] MEDS: ESCITALOPRAM OXALATE 10 MG TABLET PO (08:37)
[2023-06-27] MEDS: cycloSPORINE 0.4 ML OPHTH SOLUTION 1 DROP EACH EYE (08:37)
[2023-06-27] MEDS: MULTIVITAMINS /C LUTEIN (CENTRUM SILVER) TABLET *BKC 1 TAB PO (08:37)
--- NOTE | 2023-06-27 14:52 | PM.DS ---
DS: Admitting Diagnosis Discharge Date 06/27/23 Admitting Diagnosis Chest pain DS: Discharge Diagnosis Discharge Diagnosis (1) Chest pain: Code(s): R07.9 - Chest pain, unspecified Status: Acute (2) Elevated lipase: Code(s): R74.8 - Abnormal levels of other serum enzymes Status: Acute (3) Mixed hyperlipidemia: Code(s): E78.2 - Mixed hyperlipidemia Status: Acute DS: Summary Hospital Course Reason for hospitalization: 77-year-old female with history of breast cancer and hyperlipidemia here for chest pain.?Please see H&P for details Hospital Course: In the ED, patient was afebrile with stable vital signs. CMP and CBC were unremarkable. Lipase was a bit elevated at 441 but normal on repeat. Troponin negative x3. EKG showed a sinus rhythm with a rate of 78, normal axis, septal myocardial infarction of indeterminate age. Chest x-ray was clear. CTA of the chest, abdomen, and pelvis showed no evidence of PE or aortic aneurysm or dissection. Fluid levels noted in the cecum and ascending colon which may indicate enterocolitis though she denies having diarrhea. The patient was admitted to IMU. Lexiscan stress test was negative for ischemic ST changes. Nuclear images showing normal myocardial perfusion at rest and during stress. EF 65%. She had no recurrence of the pain. She overall did well and was able to be discharged home on 06/27/23. Status at Discharge Cognitive/behavioral status at discharge: stable Time Spent with Patient Time attestation: Total time spent providing and/or coordinating discharge services: 35 minutes Time spent: Greater than 30 minutes Exam Narrative: AF 98.1 128/62 74 17 95% ra Gen - NARD Chest - CTA bilaterally, nml RR CV - RRR S1/S2. Tele showing no acute dysrhythmias Abd - Soft, NT/ND, Positive BS Ext - No pedal edema Psych - Nml mood and affect Skin - Warm and dry DS: Data Data Completed and Pending Labs on day of discharge: Labs from last 24 hours 06/27/23 06/26/23 06/26/23 04:16 20:07 14:43 WBC 7.2 RBC 3.88 L Hgb 11.9 L Hct 37.6 MCV 96.9 MCH 30.7 MCHC 31.6 L RDW 13.9 Plt Count 237 MPV 11.1 H Immature Gran % (Auto) 0.3 Neut % (Auto) 66.1 Lymph % (Auto) 24.2 Guthrie % (Auto) 6.5 Eos % (Auto) 2.3 Baso % (Auto) 0.6 Lymph # (Auto) 1.75 Guthrie # (Auto) 0.5 Eos # (Auto) 0.2 Baso # (Auto) 0.0 Abs Immat Gran (auto) 0.02 Absolute Neuts (auto) 4.8 Absolute Nucleated RBC 0.0 Nucleated RBC % 0.0 Sodium 136 L Potassium 3.8 Chloride 104 Carbon Dioxide 27 Anion Gap 5 L BUN 8 Creatinine 0.60 L Estim Creat Clear Calc 54 Estimated GFR > 60 Glucose 97 Calcium 8.6 Magnesium 2.1 Total Bilirubin 0.7 Direct Bilirubin 0.0 AST 29 ALT 21 Alkaline Phosphatase 70 Troponin I < 0.012 Total Protein 8.0 Albumin 4.4 Amylase 104 Lipase 76 206 Discharge Plan Discharge Attending physician on discharge: Colten Hoffmann Discharging Clinician: Colten Hoffmann Anticipated Discharge Date/Time: 06/27/23 15:01 Patient Disposition: Home, Self-Care Activity: as tolerated Diet: heart healthy Discharge Instructions: Contact your doctor or call 911 and come to the Emergency Room if you have recurrent chest pain or other worrisome symptoms. Follow-up with your primary care provider in 1-2 weeks. Please call for appointment. Thank you for using [facility] for your health care needs. Patient Instructions: Antibiotic Form Stand Alone Forms: General Discharge Information Follow-up/Referrals: John,Aden Woo MD [Primary Care Provider] - Call for Appointment Discharge Medications: Continued ergocalciferol (vitamin D2) 1,250 mcg (50,000 unit) capsule 50,000 unit PO WEEKLY Rx Instructions: mondays rosuvastatin 10 mg tablet 10 mg PO DIRECTED
== END 2023-06-27 15:44 | disposition home or self-care (01) ==
LOC: ANHED 13:32 → ANHIMU 06-27 15:03
PROVIDERS: Physician Assistant; Admitting Provider General Practice; Emergency Provider Preventive Medicine Aerospace Medicine; PCP Internal Medicine; Visit Provider Internal Medicine
DX: R07.9 Chest pain, unspecified (principal); Z85.3 Personal history of malignant neoplasm of breast; E78.2 Mixed hyperlipidemia; I89.0 Lymphedema, not elsewhere classified; R94.31 Abnormal electrocardiogram [ECG] [EKG]; R74.8 Abnormal levels of other serum enzymes; Z90.12 Acquired absence of left breast and nipple; K76.0 Fatty (change of) liver, not elsewhere classified; M62.838 Other muscle spasm; R53.83 Other fatigue; M85.80 Other specified disorders of bone density and structure, unspecified site; K57.30 Diverticulosis of large intestine without perforation or abscess without bleeding; F10.90 Alcohol use, unspecified, uncomplicated; Z79.899 Other long term (current) drug therapy
CPT/HCPCS: 36415; 71046; 71275; 74174; 78452; 80048; 80053; 80076; 82150; 83690; 83735; 84484; 85025; 85610; 85730; 93005; 93017; 96361; 96374; 96375; 99285; A9270; A9502; G0378; J2270; J2405; J2785; J7120; Q9967

== ENCOUNTER 2024-03-14 02:18 | Day surgery (SDC) | payer MEDICARE, BC, SELFPAY ==
[2024-02-28 10:30] VITALS: BMI 23.8
[2024-03-14 13:45] VITALS: BP 177/83; PULSE 83; RESP 18; TEMP 36.2; O2SAT 98
[2024-03-14] MEDS: LACTATED RINGERS 1,000 ML 150 ML IV CONT (13:55)
--- NOTE | 2024-03-14 13:57 | WPDANESEPPF ---
Anes - Initial Pre Proc Eval Procedure: Operation Date: 03/14/24 14:00 Proposed Procedures p Colonoscopy - Delgado Taveras MD Date/Time: 03/14/24 13:57 Surgeon: Delgado Taveras MD Pre Op Diagnosis: Melena, Abdominal pain, unspecified Patient Data Age: 78 Gender: F Height: 1.57 m Weight: 59.4 kg Last Vital Signs Temp 97.2 F L 03/14/24 13:45 Pulse 83 03/14/24 13:45 Resp 18 03/14/24 13:45 BP 177/83 H 03/14/24 13:45 Pulse Ox 98 03/14/24 13:45 O2 Del Method Room Air 03/14/24 13:45 Allergies Allergy/AdvReac Type Severity Reaction Status Date / Time Penicillins Allergy Unknown Other Verified 03/14/24 13:44 Sulfa (Sulfonamide Allergy Unknown rash Verified 03/14/24 13:44 Antibiotics) sulfanilamide Allergy Unknown Other Verified 03/14/24 13:44 Home Medications Medication Instructions Recorded Confirmed Type ergocalciferol (vitamin D2) 1,250 50,000 unit PO WEEKLY 05/19/22 02/28/24 History mcg (50,000 unit) capsule rosuvastatin 10 mg tablet 10 mg PO DIRECTED 05/19/22 02/28/24 History coenzyme Q10 30 mg capsule (Co 30 mg PO DAILY 06/26/23 02/28/24 History Q-10) cyclosporine 0.05 % eye drops in a 1 drp EACH EYE Q12H 06/26/23 02/28/24 History dropperette dicyclomine 10 mg capsule 10 mg PO DAILY PRN muscle spasms 06/26/23 02/28/24 History escitalopram oxalate 10 mg tablet 10 mg PO DAILY 06/26/23 02/28/24 History multivit with minerals-iron 18 1 tablet PO DAILY 06/26/23 02/28/24 History mg-folic ac 400 mcg-vit K 25 mcg tablet (Adults Multivitamin) magnesium citrate 125 mg capsule 250 mg PO DAILY 02/28/24 02/28/24 History Patient hx anesthesia problems: none Family hx anesthesia problems: none Results Review: All pre-operative results and documents have been reviewed as part of the pre-operative evaluation. [facility] Past Medical History Medical History Cancer of left breast Lymphedema Mixed hyperlipidemia Surgical History Surgical History (Updated 06/26/23 @ 20:52 by Deanna Sparks PA-C) History of bunionectomy of both great toes History of cataract extraction History of left mastectomy Status post transverse rectus abdominis muscle flap breast reconstruction Family History Family History Mother Family history of pancreatic cancer Family history of dementia Father Family history of heart disease in male family member before age 55 Other Family history of arthritis Hypertension Social History Social History (Updated 06/26/23 @ 20:52 by Deanna Sparks PA-C) Social History: Surrogate medical decision maker: Douglas Blunt, spouse. Code status: Full code. Smoking status: Never smoker Alcohol intake: never Substance use: never Substance use type: does not use Lack of Transportation: No Lack of Food: Never True Current Housing: I Have Housing Concerned About Future Housing: No Difficulty Paying Gas/Electric Bills: No Difficulty Paying for Meds: No Currently Unemployed: No Education: High School Diploma/GED Difficulty w/ Childcare or Family Care: No Living arrangements: with family Additional living arrangements comments: Lives with spouse in [place]. They have 3 children. Additional occupation/education comments: Retired. Worked as a [employer] for many years and retired from [employer]. Spiritual care concerns: No Anes - Eval Final PreProcedure Day of Procedure 03/14/24 13:57 Patient weight: normal Heart: regular rate and rhythm Lungs: clear to auscultation Airway: Mallampati scale class II Neurological: alert and oriented Last oral intake: >/= 8 hours ASA classification: III Emergent: no Anesthetic plan: proceed Anesthesia type and monitoring: general GIVS and standard monitoring Results Review: All pre-operative results and documents have bee
--- NOTE | 2024-03-14 14:25 | PM.HPGS ---
History of Present Illness History of Present Illness Consent: Risks, benefits, and alternatives have been discussed and questions answered. Patient agrees to proceed with procedure. Chief complaint: Melena, Abdominal pain, unspecified Narrative: Ellen Blunt is a 78 year old female with intermittent abdominal pain, last colonoscopy 2021 Review of Systems Review of Systems: All systems reviewed & are unremarkable except as noted in HPI and below PMFSH Past Medical History Medical History Cancer of left breast Lymphedema Mixed hyperlipidemia Surgical History Surgical History (Updated 06/26/23 @ 20:52 by Deanna Sparks PA-C) History of bunionectomy of both great toes History of cataract extraction History of left mastectomy Status post transverse rectus abdominis muscle flap breast reconstruction Family History Family History Mother Family history of pancreatic cancer Family history of dementia Father Family history of heart disease in male family member before age 55 Other Family history of arthritis Hypertension Social History Social History (Updated 06/26/23 @ 20:52 by Deanna Sparks PA-C) Social History: Surrogate medical decision maker: Douglas Blunt, spouse. Code status: Full code. Smoking status: Never smoker Alcohol intake: never Substance use: never Substance use type: does not use Lack of Transportation: No Lack of Food: Never True Current Housing: I Have Housing Concerned About Future Housing: No Difficulty Paying Gas/Electric Bills: No Difficulty Paying for Meds: No Currently Unemployed: No Education: High School Diploma/GED Difficulty w/ Childcare or Family Care: No Living arrangements: with family Additional living arrangements comments: Lives with spouse in [place]. They have 3 children. Additional occupation/education comments: Retired. Worked as a [employer] for many years and retired from [employer]. Spiritual care concerns: No Meds Home Medications and Allergies Home Medications Medication Instructions Recorded Confirmed Type ergocalciferol (vitamin D2) 1,250 50,000 unit PO WEEKLY 05/19/22 02/28/24 History mcg (50,000 unit) capsule rosuvastatin 10 mg tablet 10 mg PO DIRECTED 05/19/22 02/28/24 History coenzyme Q10 30 mg capsule (Co 30 mg PO DAILY 06/26/23 02/28/24 History Q-10) cyclosporine 0.05 % eye drops in a 1 drp EACH EYE Q12H 06/26/23 02/28/24 History dropperette dicyclomine 10 mg capsule 10 mg PO DAILY PRN muscle spasms 06/26/23 02/28/24 History escitalopram oxalate 10 mg tablet 10 mg PO DAILY 06/26/23 02/28/24 History multivit with minerals-iron 18 1 tablet PO DAILY 06/26/23 02/28/24 History mg-folic ac 400 mcg-vit K 25 mcg tablet (Adults Multivitamin) magnesium citrate 125 mg capsule 250 mg PO DAILY 02/28/24 02/28/24 History Allergies Allergy/AdvReac Type Severity Reaction Status Date / Time Penicillins Allergy Unknown Other Verified 03/14/24 13:44 Sulfa (Sulfonamide Allergy Unknown rash Verified 03/14/24 13:44 Antibiotics) sulfanilamide Allergy Unknown Other Verified 03/14/24 13:44 Vital Signs Vital Signs - 24 hr 03/14/24 13:45 Temperature 97.2 F L Pulse Rate 83 Respiratory Rate 18 Blood Pressure 177/83 H Pulse Oximetry 98 Oxygen Delivery Room Air Exam Const: General: comfortable and no acute distress HENMT: Face/Nose/Sinus: Normal nares present Eyes: General: appearance normal, both eyes and all related structures Neck: Neck: no JVD Resp: Auscultation: clear to auscultation bilaterally Cardio: Rate: regular rate Rhythm: regular rhythm GI: Inspection: non-distended GI Palp: Yes Soft to palpation Skin: General skin exam: normal color Neuro: General: gait normal Speech: normal speech Extrem: General: normal to inspection Ps
[2024-03-14 14:42] VITALS: BP 108/60; PULSE 65; RESP 14; O2SAT 98
[2024-03-14 14:52] VITALS: BP 107/59; PULSE 75; RESP 16; O2SAT 100
[2024-03-14 15:02] VITALS: BP 122/51; PULSE 67; RESP 20; O2SAT 98
== END 2024-03-14 15:13 | disposition home or self-care (01) ==
PROVIDERS: PCP Internal Medicine; Visit Provider Internal Medicine Gastroenterology
PROC: 0DJD8ZZ Inspection of Lower Intestinal Tract, Via Natural or Artificial Opening Endoscopic (ICD-10-PCS; CPT 45378; principal; 2024-03-14 14:00)
DX: K64.8 Other hemorrhoids (principal); K64.4 Residual hemorrhoidal skin tags; E78.2 Mixed hyperlipidemia; Z98.890 Other specified postprocedural states; Z85.3 Personal history of malignant neoplasm of breast; Z80.0 Family history of malignant neoplasm of digestive organs; Z82.49 Family history of ischemic heart disease and other diseases of the circulatory system
CPT/HCPCS: 45378; J2704; J7120

== ENCOUNTER 2025-02-20 08:33 | Outpatient (CLI) | payer MEDICARE, BC, SELFPAY ==
--- NOTE | ~2025-02-20 | DEXA_ITS ---
Bone Density Report Name: KATHY DALLAS Age: 79 Sex: Female Ethnicity: White Date of : 1945 Indication: osteopenia; height loss; Referring Provider: CHARO RUTH Study: Bone densitometry was performed. Exam Date: February 20, 2025 Accession number: [id number] Bone Density: Region BMD T-score Z-score Classification AP Spine(L1-L4) 0.859 -1.7 0.9 Osteopenia Femoral Neck (Left) 0.612 -2.1 0.1 Osteopenia Total Hip (Left) 0.738 -1.7 0.3 Osteopenia Femoral Neck (Right) 0.626 -2.0 0.2 Osteopenia Total Hip (Right) 0.703 -2.0 0.0 Osteopenia Total Hip Mean 0.721 -1.9 0.2 Osteopenia World Health Organization criteria for BMD impression classify patients as: Normal (T-score at or above -1.0), Osteopenia (T-score between -1.0 and -2.5), or Osteoporosis (T-score at or below -2.5). 10-year Fracture Risk(1): Major Osteoporotic Fracture 16% Hip Fracture 4.7% Reported Risk Factors: [place] (), Neck BMD=0.612, BMI=24.8 (1) FRAX(R) Version 3.08. Fracture probability calculated for an untreated patient. Fracture probability may be lower if the patient has received treatment. Previous Exams: -- Region Exam Age BMD T-score BMD Change BMD Change Date g/cm2 vs Baseline vs Previous -- AP Spine (L1-L4) 02/20/2025 79 0.859 -1.7 -3.3%* -1.9% 11/25/2022 76 0.876 -1.6 -1.4% -1.2% 06/17/2020 74 0.887 -1.5 -0.2% 5.7%* 05/10/2018 72 0.839 -1.9 -5.5%* 1.5% 07/07/2015 69 0.827 -2.0 -6.9%* -0.8% 06/22/2013 67 0.833 -1.9 -6.2%* -7.2%* 01/18/2011 65 0.898 -1.4 1.1% 2.1% 01/01/2009 63 0.880 -1.5 -1.0% 5.3%* 10/27/2006 60 0.836 -1.9 -5.9%* -5.9%* 10/13/2004 58 0.888 -1.4 Total Hip(Left) 02/20/2025 79 0.738 -1.7 -11.6%* -3.8%* 11/25/2022 76 0.768 -1.4 -8.1%* -1.1% 06/17/2020 74 0.776 -1.4 -7.1%* 2.5% 05/10/2018 72 0.757 -1.5 -9.3%* -1.3% 07/07/2015 69 0.767 -1.4 -8.1%* -7.0%* 06/22/2013 67 0.825 -1.0 -1.2% -0.7% 01/18/2011 65 0.831 -0.9 -0.6% 3.5%* 01/01/2009 63 0.802 -1.1 -3.9%* 0.3% 10/27/2006 60 0.800 -1.2 -4.2%* -4.2%* 10/13/2004 58 0.835 -0.9 Total Hip(Right) 02/20/2025 79 0.703 -2.0 -16.3%* -4.5%* 11/25/2022 76 0.737 -1.7 -12.3%* -0.5% 06/17/2020 74 0.741 -1.7 -11.8%* 0.4% 05/10/2018 72 0.738 -1.7 -12.2%* 2.0% 07/07/2015 69 0.724 -1.8 -13.8%* -9.5%* 06/22/2013 67 0.800 -1.2 -4.8%* 0.5% 01/18/2011 65 0.796 -1.2 -5.2%* -0.8% 01/01/2009 63 0.803 -1.1 -4.4%* 1.9% 10/27/2006 60 0.788 -1.3 -6.2%* -6.2%* 10/13/2004 58 0.840 -0.8 -- *Denotes significance at 95% confidence level, LSC for AP Spine = 0.022 g/cm2, LSC for Total Hip = 0.027 g/cm2 Clinical Information Provided by Patient: Has used the following medications: Vitamin D Patient maximum height was 62 Menopause Age: 35 No regular weight bearing exercise Does not regularly consume dairy products Drinks caffeinated beverages Onset of menses at age 13 Number of children 3 Impression: The patient has low bone mass, based on the Left Femoral Neck T-score. The patient has an estimated ten-year risk of hip fracture of 4.7% and an estimated ten-year risk of major fracture of 16%, based on the WHO FRAX algorithm. The BMD for the Total Hip(Left) decreased, changing by -3.8% since the last DXA exam. The BMD for the Total Hip(Right) decreased, changing by -4.5% since the last DXA exam. Discussion: BONE DENSITY IS LOW AT ONE OR MORE SKELETAL SITES. THE PATIENT'S BMD AND CLINICAL RISK FACTORS CONTRIBUTE TO THIS PATIENT'S INCREASED RISK OF FRACTURE. This patient's lowest T-score is low at one or more skeletal sites. It meets the World Health Organization's (WHO) criteria for ?low bone mass? (T-score between -1.0 and -2.5). The patient's 10-year risk of hip fracture as calculated by FRAX exceeds the threshold where pharmacological therapy is recommended by the National Osteoporosis Foundation (NOF). However, all treatment decisions require clinical judgment and consideration of individual patient factors, including patient preferences, comorbidities, previous drug use, risk factors not captured in the FRAX model (e.g., frailty, falls, vitamin D deficiency, increased bone turnover, interval significant decline in bone density) and possible under or overestimation of fracture risk by FRAX. The patient should follow a healthful lifestyle (good nutrition with adequate calcium and vitamin D, and appropriate weight-bearing exercise). Follow-Up: Consider a repeat BMD and Vertebral Fracture Assessment (VFA) exam in 2 years or sooner if medically necessary, to reassess this patient's status. Reported by: KRISTIE on 02/20/2025 9:03:00 AM. Reviewed, dictated and finalized at location A.
== END 2025-02-20 08:34 | disposition home or self-care (01) ==
LOC: MICIMG 08:34
PROVIDERS: PCP Internal Medicine; Visit Provider Obstetrics & Gynecology Gynecology
DX: M85.88 Other specified disorders of bone density and structure, other site (principal); M85.852 Other specified disorders of bone density and structure, left thigh; M85.851 Other specified disorders of bone density and structure, right thigh
CPT/HCPCS: 77080

== ENCOUNTER 2025-05-13 15:36 | Emergency (ER) | payer MEDICARE, BC, SELFPAY ==
--- NOTE | ~2025-05-13 | CT_ITS ---
EXAMINATION: CT abdomen pelvis w con DATE: 05/13/2025 18:01 INDICATION: Low abdominal pain. Fever. TECHNIQUE: Computed tomography (CT) of the abdomen and pelvis was performed with 100 mL Omnipaque 350 intravenous contrast. Automated exposure control and iterative reconstruction technique were employed. The dose-length product was 239.43 mGy-cm. COMPARISON: CT abdomen and pelvis 06/26/2023 FINDINGS: The visualized portions of the lung bases demonstrate mild atelectasis. No pleural effusion. The heart size is normal. No pericardial effusion. There is a small sliding hiatal hernia. The liver, gallbladder, spleen, pancreas, and adrenal glands are normal. There are cysts in the kidneys measuring up to 7 mm on the right. There are scattered diverticula in the colon. There is fat stranding around a sigmoid diverticulum, consistent with diverticulitis. There are no dilated loops of bowel. The appendix is not visualized. There are no pathologically enlarged lymph nodes. There is no free intraperitoneal fluid. There is severe lumbar spondylosis. IMPRESSION: 1. Acute sigmoid diverticulitis. No perforation or abscess. Reviewed, dictated and finalized at location K.
--- OUTSIDE RECORDS SUMMARY | 2025-05-13 15:15 | XMS_ITS | Encounter Summary ---
Author Organization [facility] Healthcare Address [address] [place] [address] Care Team Providers Care Recreation Therapy Aides Teacher Name Role Phone Aden Lopez MD Primary Care Provider [phone] Reason for Visit * Reason Comments Abdominal Pain Lower abdominal pain , c/o abdomen feels tight and has a raised hard lump . C/o pains are on and off that are sharp started yesterday and reports she had 100.5 temp yesterday and this AM. Having normal BMs in the last week. Encounter Details Date Type Department Care Team (Late st Contact Info) Description 05/13/2025 3:15 PM CDT Office Visit [facility] at [address] [address] Che Ahuja NP [address] [place] [address] [address] [place] [address] Abdominal pain (Primary Dx); Left lower quadrant abdominal pain Social History Tobacco Use Types Packs/Day Years Used Date Smoking Tobacco: Never Passive Smoke Exposure: Past Smokeless Tobacco: Never Alcohol Use Standard Drinks/Week Comments Yes 0 (1 standard drink = 0.6 oz pur e alcohol) AUDIT-C Answer Date Recorded Q1: How often do you have a drink containing alc ohol? 2-4 times a month 02/18/2021 Q2: How many drinks containi ng alcohol do you have on a typical day when you are drinking? 1 or 2 02/18/2021 Q3: How often do you have si x or more drinks on one occasion? Never 02/18/2021 Comments No Sex and Gender Information Value Date Recorded Sex Assigned at Not on file Legal Sex Female 4:08 AM CLINICAL AIDE Gender Identity Female 02/14/2021 8:37 AM CDT Sexual Orientation Straight 02/14/2021 8: 37 AM CDT documented as of this encounter Last Filed Vital Signs Vital Sign Reading Time Taken Comments Blood Pressure 126/82 05/13/2025 2:43 PM CDT Pulse 85 05/13/2025 2:43 PM CDT Temperature 36.7 C (98.1 F) 05/13/2025 2:43 PM CDT Respiratory Rate 20 05/13/2025 2:43 PM CDT Oxygen Saturation 97% 05/13/2025 2:43 PM CDT Inhaled Oxygen Concentration - - Weight 59.4 kg (131 lb) 05/13/2025 2:43 PM CDT Height - - Body Mass Index 25.58 01/31/2025 10:51 AM CDT documented in this encounter Patient Instructions * Patient Instructions* Che Ahuja NP - 05/13/2025 3:15 PM CDT Abdominal pain with fever of 100.5 x2 days. Patient does have a history of diverticulitis. 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 UA results below. Concern for diverticulitis versus intra-abdominal etiology Color, Urine, POC Light Yellow Clarity, ur, POC Clear Cloudy Abnormal Glucose, ur, POC Negative Negative Bilirubin, ur, POC Negative Negative Ketones, ur, POC Negative 40. Abnormal Specific [place], POC 1.003 - 1.030 1.010 Blood, ur, POC Negative Non-hemolyzed, trace Abnormal pH, ur, POC 5.0 - 8.0 6.0 Protein, ur, POC Negative Negative Urobilinogen, urine, POC 0.2 - 1.0 mg/dL 0.2 Nitrite, ur, POC Negative Negative Leukocytes, ur, POC Negative Trace Abnormal documented in this encounter Plan of Treatment Scheduled Orders Name Type Priority Associated Diagnoses Orde r Schedule Urine culture Urine, clean voided Microbiology Routine Abdominal pain Left lower quadrant abdominal pain Expected: 05/13/2025, Expires: 05/13/2026 documented as of this encounter Procedures Procedure Name Priority Date/Time Associated Diagnosis Comments POCT URINALYSIS DIPSTICK Routine 05/13/2025 2:53 PM CDT Abdominal pain Left lower quadrant abdominal pain documented in this encounter Results * (ABNORMAL) POCT urinalysis dipstick (05/13/2025 2:53 PM CDT) Color, Urine, POC Light Yellow Clarity, ur, POC Cloudy(A) Clear Glucose, ur, POC Negative Negative Bilirubin, ur, POC Negative Negative Ketones, ur, POC 40.(A) Negative Specific [place], POC 1.010 1.003 - 1.030 Blood, ur, POC Non-hemolyze d, trace(A) Negative pH, ur, POC 6.0 5.0 - 8.0 Protein, ur, POC Negative Negative Urobilinogen, urine, POC 0.2 0.2 - 1.0 mg/dL Nitrite, ur, POC Negative Negative Leukocytes, ur, POC Trace(A) Negative Lot Number [id number] Urine 05/13/2025 2:53 PM CDT Che Ahuja DEPARTMENT CHAIRPERSON POINT OF CARE TEST ORDERAB LES Final Result documented in this encounter Visit Diagnoses Diagnosis Abdominal pain- Primary Abdominal pain, unspecified site Left lower quadrant abdominal pain documented in this encounter Historical Medications * This list may reflect changes made after this encounter. Medication Sig Dispense Quantity Refills Last Filled Start D ate End Date ibandronate (BONIVA) 150 mg tablet 03/04/2025 added in this encounter Care Teams Recreation Therapy Aides Teacher Relationship Specialty Start Date End Date Aden Lopez MD PCP - General Internal Medicine 06/11/20 documented as of this encounter
--- OUTSIDE RECORDS SUMMARY | 2025-05-13 15:15 | XMS_ITS | Encounter Summary ---
Author Organization [facility] Healthcare Address [address] [place] [address] Care Team Providers Care Craniologist Name Role Phone Aden Lopez MD Primary Care Provider Reason for Visit * Reason Comments Abdominal [...] 3:15 PM CDT Office Visit [facility] at [address] [address] Che Ahuja NP [address] [place] [address] [address] [place] [address] Abdominal pain (Primary Dx); Left [...] on file Legal Sex Female 4:08 AM RATE CLERK Gender Identity Female 02/14/2021 8:37 AM CDT [...] Ketones, ur, POC Negative 40. Abnormal Specific [place], POC 1.003 - 1.030 1.010 Blood, ur, [...] Negative Ketones, ur, POC 40.(A) Negative Specific [place], POC 1.010 1.003 - 1.030 Blood, ur, POC Non-hemolyze d, trace(A) Negative pH, ur, POC 6.0 5.0 - 8.0 Protein, ur, POC Negative Negative Urobilinogen, urine, POC 0.2 0.2 - 1.0 mg/dL Nitrite, ur, POC Negative Negative Leukocytes, ur, POC Trace(A) Negative Lot Number [id number] Urine 05/13/2025 2:53 PM CDT Che Ahuja BODY FINISHER POINT OF CARE TEST ORDERAB LES Final [...] 03/04/2025 added in this encounter Care Teams Craniologist Relationship Specialty Start Date End Date Aden Lopez MD PCP - General Internal Medicine 06/11/20 documented as of this encounter
[2025-05-13 15:54] VITALS: BP 124/63; PULSE 76; RESP 16; TEMP 37.2; O2SAT 100
--- NOTE | 2025-05-13 16:20 | ED.ABDPAIN ---
HPI - Abdominal Pain General Chief Complaint: Abdominal Pain Stated Complaint: abdominal pain, fever Time Seen by Provider: 05/13/25 16:09 Source: patient and family () Mode of arrival: ambulatory Limitations: no limitations History of Present Illness HPI narrative: Patient presents with report of low abdominal pain, LLQ and RLQ, and fever. Lamont like symptoms started on Fridya but have been progressing. Max temp 100.5. Having some back pain as well. Previous GI was Dr Amaya, more recently had a colonoscopy here as well after he retired. Pain 12/06. Described as gnawing and cramping. History of TRAM flap , no other abdominal surgeries. Also mastectomy. Previous episode diverticulitis. Hx papillary mucinous tumor. Longstanding GI issues, no longer taking dicyclomine. Has been diagnosed with an overactive gallbladder. A lot of bloody stools. Told at urgent care that she had trace blood and trace leukocytes on UA. Lost weight because decreased PO intake. No N/V/D though frequently has constipation so takes magnesium citrate daily; LBM yesterday. PCP Thuy through [facility]. Related Data Home Medications ?Medication ?Instructions ?Recorded ?Confirmed ?Last Taken ?Type ergocalciferol (vitamin D2) 1,250 50,000 unit PO WEEKLY 05/19/22 02/28/24 Unknown History mcg (50,000 unit) capsule rosuvastatin 10 mg tablet 10 mg PO DIRECTED 05/19/22 02/28/24 Unknown History coenzyme Q10 30 mg capsule (Co 30 mg PO DAILY 06/26/23 02/28/24 Unknown History Q-10) cyclosporine 0.05 % eye drops in a 1 drp EACH EYE Q12H 06/26/23 02/28/24 Unknown History dropperette dicyclomine 10 mg capsule 10 mg PO DAILY PRN muscle spasms 06/26/23 02/28/24 Unknown History escitalopram oxalate 10 mg tablet 10 mg PO DAILY 06/26/23 02/28/24 Unknown History multivit with minerals-iron 18 1 tablet PO DAILY 06/26/23 02/28/24 Unknown History mg-folic ac 400 mcg-vit K 25 mcg tablet (Adults Multivitamin) magnesium citrate 125 mg capsule 250 mg PO DAILY 02/28/24 02/28/24 Unknown History Allergies Allergy/AdvReac Type Severity Reaction Status Date / Time Penicillins Allergy Unknown Other Verified 05/13/25 16:09 Sulfa (Sulfonamide Allergy Unknown rash Verified 05/13/25 16:09 Antibiotics) sulfanilamide Allergy Unknown Other Verified 05/13/25 16:09 [facility] Past Medical History Medical History Intraductal papillary mucinous tumor Cancer of left breast Mixed hyperlipidemia Lymphedema Surgical History Surgical History Status post transverse rectus abdominis muscle flap breast reconstruction (TRAM) Flap History of cataract extraction History of bunionectomy of both great toes History of left mastectomy Family History Family History Mother Family history of pancreatic cancer Family history of dementia Father Family history of heart disease in male family member before age 55 Other Family history of arthritis Hypertension Social History Social History Social History: Surrogate medical decision maker: Douglas Blunt, spouse. Code status: Full code. Smoking status: Never smoker Alcohol intake: never Substance use: never Substance use type: does not use Lack of Transportation: No Lack of Food: Never True Current Housing: I Have Housing Concerned About Future Housing: No Difficulty Paying Gas/Electric Bills: No Difficulty Paying for Meds: No Currently Unemployed: No Education: High School Diploma/GED Difficulty w/ Childcare or Family Care: No Living arrangements: with family Additional living arrangements comments: Lives with spouse in [place]. They have 3 children. Additional occupation/education comments: Retired. Worked as a [employer] for many years and retired from [employer]. Spiritual care concerns: No Exam Narrative: GENERAL: Well-appearing, well-nourished, and in no acute distress. HEAD: Normocephalic, atraumatic. EYES: Non injected, non icteric ENT: Nares clear, no rhinorrhea or epistaxis. Gross auditory acuity intact. NECK: Supple. No meningismus. CHEST: Speaking in full sentences. No respiratory distress. HEART: Regular rate and rhythm. . ABDOMEN: Soft, nondistended. Mild TTP in bilateral lower quadrants. No rigidity or guarding. Not peritoneal EXTREMITIES: Normal range of motion. No lower extremity edema. SKIN: Warm, dry, no rash. BACK : No CVA tenderness NEURO: No focal deficits. Alert and oriented. Answering questions. Following commands. Normal speech without aphasia or dysarthria. PSYCH: Normal mood and affect. Course Vital Signs Vital signs: Vital Signs Temperature 98.9 F 05/13/25 15:54 Pulse Rate 76 05/13/25 15:54 Respiratory Rate 16 05/13/25 15:54 Blood Pressure 124/63 05/13/25 15:54 Pulse Oximetry 100 05/13/25 15:54 Oxygen Delivery Room Air 05/13/25 15:54 Temperature 98.9 F 05/13/25 15:54 Pulse Rate 67 05/13/25 17:32 Respiratory Rate 15 05/13/25 17:32 Blood Pressure 122/64 05/13/25 17:32 Pulse Oximetry 100 05/13/25 17:32 Oxygen Delivery Room Air 05/13/25 15:54 MDM - Abdominal Pain MDM Narrative Medical decision making narrative: Patient presents with low abdominal pain, perhaps LLQ more so than right. In the emergency department they are afebrile with vital signs within normal limits. Mild leukocytosis. Otherwise CBC is without anemia. 2+ ketonuria. IV fluids ordered. CT as below: Outpatient PO antibiotics covering gram negative aerobic and anaerobic bacteria will be initiated in the form of cipro 500mg BID and metronidazole 500mg q 6 hr for 7 days. First dose given in the ED. She is also given prescriptions for ibuprofen and acetaminophen (and narcotics for breakthrough pain) for pain control. Advised follow up with GI and strict ED return precautions. Differential Diagnosis Differential diagnosis: Likely abdominal pain, acute appendicitis, calculus of kidney, constipation, diverticulitis and other (intraabdominal abscess; UTI/pyelo) Lab Data Attestation: I reviewed the patient's lab results. Lab results narrative: Normal lipase and lactic acid 05/13/25 16:20 05/13/25 16:20 Labs: Lab Results 05/13/25 05/13/25 05/13/25 Range/Units 16:20 16:21 16:41 WBC 10.2 H (4.5-10.0) K/mm3 RBC 3.95 L (4.2-5.4) M/mm3 Hgb 12.2 (12.0-15.0) g/dL Hct 37.8 (37.0-47.0) % MCV 95.7 (80-100) fl MCH 30.9 (26-34) pg MCHC 32.3 (32-36) g/dl RDW 13.9 (11.5-14.5) % Plt Count 254 (150-375) k/mm3 MPV 10.4 (7.4-10.4) fl Immature Gran % (Auto) 0.4 (0-0.5) % Neut % (Auto) 74.5 H (45.5-73.1) % Lymph % (Auto) 17.3 L (18.3-44.2) % [place] % (Auto) 6.0 (2.6-8.5) % Eos % (Auto) 1.3 (0-4.4) % Baso % (Auto) 0.5 (0.2-1.2) % Lymph # (Auto) 1.77 (0.9-3.2) K/mm3 [place] # (Auto) 0.6 (0.1-0.6) K/mm3 Eos # (Auto) 0.1 (0-0.3) K/mm3 Baso # (Auto) 0.1 (0.0-0.1) K/mm3 Abs Immat Gran (auto) 0.04 H (0.00-0.031) K/mm3 Absolute Neuts (auto) 7.6 H (1.3-6.7) K/mm3 Absolute Nucleated RBC 0.000 (0.0-0.012) K/mm3 Nucleated RBC % 0.0 (0.0-0.2) % Sodium 138 (137-145) mmol/L Potassium 4.1 (3.4-5.0) mmol/L Chloride 102 (98-107) mmol/L Carbon Dioxide 27 (22-30) mmol/L Anion Gap 9 (4-12) mmol/L BUN 13 D (7-17) mg/dL Creatinine 0.71 (0.7-1.0) mg/dL Estim Creat Clear Calc 45 ml/min Estimated GFR > 60 (59 - ) Glucose 90 (65-110) mg/dL Lactic Acid 0.8 (0.7-2.0) mmol/L Calcium 9.0 (8.4-10.2) mg/dL Total Bilirubin 0.9 (0.2-1.3) mg/dL AST 27 (14-36) U/L ALT 20 (6-35) U/L Alkaline Phosphatase 75 (38-126) U/L Total Protein 8.3 H (6.3-8.2) g/dL Albumin 4.6 (3.5-5.1) g/dL Lipase 65 (23-300) U/L Urine Color Yellow (Yellow) Urine Appearance Clear (Clear) Urine pH 5.5 (5.0-9.0) Ur Specific [place] 1.014 (1.001-1.035) Urine Protein Negative (Negative) mg/dL Urine Glucose (UA) Negative (Negative) mg/dL Urine Ketones 2+ H (Negative) mg/dL Ur Blood (Man) Negative (Negative) Urine Nitrate Negative (Negative) Urine Bilirubin Negative (Negative) Urine Urobilinogen 0.2 (<2.0) mg/dL Add Ur Microanalysis Reviewed Leukocyte Esterase Rfl 1+ H (Negative) NELY/UL Urine RBC 0-2 (0-2) /hpf Urine WBC 0-5 (0-3) /hpf Ur Squamous Epith Cells None seen (Few) /hpf Urine Bacteria None seen /hpf Urine Casts 0-2 Imaging Data Radiologist's impression: ITS Impressions Abdomen/Pelvis CT 05/13/25 18:05 IMPRESSION: 1. Acute sigmoid diverticulitis. No perforation or abscess. Discharge Plan Discharge Clinical Impression: Abdominal pain, lower, Ketonuria, Sigmoid diverticulitis Patient Disposition: Home Condition: Stable Instructions: Antibiotic Form, Diverticulitis (DC), Narcotic Safety (ED), Diverticulitis Diet (ED), Abdominal Pain (ED) Additional Instructions: You had evidence of diverticulitis on your CT scan. Take the course of antibiotics. Do not drink alcohol while taking Flagyl/metronidazole as it causes an adverse reaction. Acetaminophen/Tylenol (maximum 4000 mg per day) is safe to take with NSAIDs (ibuprofen/Motrin) for pain relief. For breakthrough pain, a short course of opiate/narcotic medications has been prescribed. You had some ketones in your urine which suggests slight dehydration, likely due to eating and drinking less, but you received 1L IV fluids and your kidney function is fine. Follow-up with your adult education manager, or, alternatively, if not possible, the name of a adult education manager is listed below. Return to the emergency department with new or worsening symptoms. Patient Language: Nauruan Prescriptions: New ciprofloxacin HCl 500 mg tablet 500 mg PO Q12H 7 Days Qty: 14 0RF metronidazole 500 mg tablet 500 mg PO Q6H 7 Days Qty: 28 0RF ibuprofen 600 mg tablet 600 mg PO TID PRN (Reason: pain) Qty: 30 0RF acetaminophen 500 mg capsule 1,000 mg PO Q6H PRN (Reason: pain) Qty: 30 0RF oxycodone 5 mg tablet 5 mg PO Q8H PRN (Reason: pain) Qty: 7 0RF No Action ergocalciferol (vitamin D2) 1,250 mcg (50,000 unit) capsule 50,000 unit PO WEEKLY Rx Instructions: mondays rosuvastatin 10 mg tablet 10 mg PO DIRECTED Rx Instructions: , , , [facility] escitalopram oxalate 10 mg tablet 10 mg PO DAILY cyclosporine 0.05 % dropperette 1 drp EACH EYE Q12H Adults Multivitamin 18 mg iron-400 mcg-25 mcg Tablet 1 tablet PO DAILY coenzyme Q10 [Co Q-10] 30 mg Capsule 30 mg PO DAILY dicyclomine 10 mg capsule 10 mg PO DAILY PRN (Reason: muscle spasms) magnesium citrate 125 mg Capsule 250 mg PO DAILY Follow-up/Referrals: John,Aden Woo MD [Primary Care Provider] Lam Gallagher MD [Physician, Gastroenterology] Time of Disposition: 18:23
[2025-05-13 16:27] LABS: Hematocrit 37.8 % (37.0-47.0); Hemoglobin 12.2 g/dL (12.0-15.0); Immature Granulocyte Percent A 0.4 % (0-0.5); Lymphocytes Absolute Auto 1.77 K/mm3 (0.9-3.2); Mean Corpuscular HGB Conc 32.3 g/dl (32-36); Mean Corpuscular Hemoglobin 30.9 pg (26-34); Mean Corpuscular Volume 95.7 fl (80-100); Nucleated Red Blood Cells Absolute Auto 0.000 K/mm3 (0.0-0.012); Nucleated Red Blood Cells Perc 0.0 % (0.0-0.2); Platelet Count Result 254 k/mm3 (150-375); Red Blood Count 3.95 M/mm3 (4.2-5.4); White Blood Count 10.2 K/mm3 (4.5-10.0)
[2025-05-13 16:36] LABS: Alanine Aminotransferase 20 U/L (6-35); Albumin Level 4.6 g/dL (3.5-5.1); Alkaline Phosphatase 75 U/L (38-126); Anion Gap 9 mmol/L (4-12); Aspartate Amino Transferase 27 U/L (14-36); Bilirubin,Total 0.9 mg/dL (0.2-1.3); Blood Urea Nitrogen 13 mg/dL (7-17); Calcium 9.0 mg/dL (8.4-10.2); Carbon Dioxide 27 mmol/L (22-30); Chloride 102 mmol/L (98-107); Estimated CRCL calculation 45 ml/min; Estimated Glomerular Filt Rate > 60; Glucose 90 mg/dL (65-110); Lipase 65 U/L (23-300); Potassium 4.1 mmol/L (3.4-5.0); Sodium 138 mmol/L (137-145); Total Protein 8.3 g/dL (6.3-8.2)
[2025-05-13 16:41] VITALS: BP 128/62; PULSE 81; RESP 14; O2SAT 99
[2025-05-13 17:10] LABS: Add Urine Microscopic? YES; Appearance Urine Clear (Clear); Glucose Urine UA Negative (Negative); Leukocyte Esterase Ur 1+ LEU/UL (Negative); Need Manual Microscopic Reviewed; Nitrate Urine Negative (Negative); Non Pathogenic Casts 0-2; Specific Grav Ur 1.014 (1.001-1.035)
[2025-05-13] MEDS: SODIUM CHLORIDE 0.9% IV 1,000 ML 999 ML IV CONT (17:22)
[2025-05-13 17:32] VITALS: BP 122/64; PULSE 67; RESP 15; O2SAT 100
--- OUTSIDE RECORDS SUMMARY | 2025-05-13 18:26 | XMS_ITS | Clinical Summary ---
Author Organization [facility] Address [address] [place] [address] Care Team Providers Care Manager Biologics Name Role Phone Raza Romero MD Primary Care Provider [phone] Source Comments [facility],non-owned Affiliates and Associated Physician Practices is amultiple site organization consisting of ambulatory clinics and hospital sitesin [place], [place], [place] and [place]. This disclosure is being madepursuant to the Care Everywhere program and may not contain all information available regarding this patient. Last updated 18.[facility] Allergies Active Allergy Reactions Criticality Noted Date Comments Penicillins Unknown 10/23/2016 Sulfamethazine Urticaria Medium 10/23/2016 Medications * Be aware that medications may not be up to date on this document. Alwaysverify current medications with the patient. Simvastatin (ZOCOR PO) Active Escitalopram Oxalate (LEXAPRO PO) Active Family History Medical History Relation Name Comments Other - Cardiac Father Cancer - Pancreatic Mother Dementia Mother Relation Name Status Comments Father Mother Social History Tobacco Use Types Packs/Day Years Used Date Smoking Tobacco: Never Smokeless Tobacco: Never Comments No Sex and Gender Information Value Date Recorded Sex Assigned at Not on file Legal Sex Female 6:53 PM YARD CONDUCTOR Gender Identity Not on file Sexual Orientation Not on file Last Filed Vital Signs Vital Sign Reading Time Taken Comments Blood Pressure 106/62 10/17/2017 5:47 PM YARD CONDUCTOR Pulse 76 10/17/2017 5:47 PM YARD CONDUCTOR Temperature 36.9 C (98.4 F) 10/17/2017 5:47 PM YARD CONDUCTOR Respiratory Rate 16 10/17/2017 5:47 PM YARD CONDUCTOR Oxygen Saturation 98% 10/17/2017 5:47 PM YARD CONDUCTOR Inhaled Oxygen Concentration - - Weight 59 kg (130 lb) 10/17/2017 5:47 PM YARD CONDUCTOR Height 157.5 cm (5' 2) 10/17/2017 5:47 PM YARD CONDUCTOR Body Mass Index 23.78 10/17/2017 5:47 PM YARD CONDUCTOR Plan of Treatment Health Maintenance Due Date Last Done Comments BONE DENSITY TESTING 1945 HEPATITIS C SCREENING 12/18/1964 DTAP/TDAP/TD VACCINES (1 - Tdap) 1965 PNEUMOCOCCAL VACCINE 50+ (1 of 1 - PCV) 1996 ZOSTER VACCINE (1 of 2) 1996 Respiratory Syncytial Virus (RSV) Vaccine Pt: or over 60 yrs (1 - 1-dose 75+ series) 2021 DEPRESSION SCREENING 08/29/2024 COVID-19 VACCINE (1 - 2023-2 5 season) 2025 INFLUENZA VACCINE (#1) 2025 HEPATITIS B VACCINE Aged Out No longe r eligible based on patient's age to complete this topic HIB VACCINE Aged Out No longer eligi ble based on patient's age to complete this topic HPV VACCINE Aged Out No longer eligi ble based on patient's age to complete this topic MENINGOCOCCAL (Group B) VACC INE SHARED DECISION-MAKING Aged Out No longer eligibl e based on patient's age to complete this topic MENINGOCOCCAL GROUPS A/C/Y/W VACCINE Aged Out No longer eligible b ased on patient's age to complete this topic Insurance [employer]IC[employer] Care Teams Manager Biologics Relationship Specialty Start Date End Date Raza Romero MD PCP - General Endocrinology 10/23/16
--- OUTSIDE RECORDS SUMMARY | 2025-05-13 18:26 | XMS_ITS ---
Author Organization [facility] Address Count includes the [facility] [place] [address] Care Team Providers Care Auto Battery Builder Name Role Phone Aden Lopez MD Primary Care Provider [phone] Active Problems Problem Noted Date Diagnosed Date Sacroiliac (ligament) sprain 01/31/2025 Assessment & Plan (01/31/2025 11:24 AM CDT): Will give meloxicam for 15 days, then have her let me know how she is doing Apical lung scarring 12/04/2024 Depression 08/01/2024 Assessment & Plan (01/31/2025 11:23 AM CDT): Doing reasonably well at this time continue medications check labs Chronic left shoulder pain 05/05/2022 Assessment & Plan (05/05/2022 2:39 PM CDT): X-ray US of shoulder Cellulitis of left upper extremity 05/05/2022 Assessment & Plan (05/05/2022 2:37 PM CDT): Resolved Right lower quadrant abdominal pain 03/04/2021 Assessment & Plan (03/04/2021 3:53 PM CDT): Etiology is not clear. Only finding so far as a small cyst in the right ovary which although atypical for this age does not seem to be causing her symptomatology. Ultrasound may be ordered. Will ask her to see her horticulture professor Dr. Thompson. Will check CBC and urinalysis. 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, refer biomass plant manager History of left breast cancer 02/17/2021 Assessment & Plan (01/31/2025 11:23 AM CDT): Stable at present. 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 Past Treatment and Therapy Plans No past plan information found. Lifetime Dose Tracking * Chemical Lifetime Dose Automatic Entry Manual Entr y DLP 1,853 mGycm 1,853 mGycm 0 mGycm
--- OUTSIDE RECORDS SUMMARY | 2025-05-13 18:26 | XMS_ITS | Clinical Summary ---
Author Organization [facility] Address [address] [place] [address] Care Team Providers Care Frit Burner Name Role Phone Aden Lopez MD Primary Care Provider [phone] Allergies Active Allergy Reactions Criticality Noted Date Comments Penicillins Rash Reaction: Rash, Sulfa (Sulfonamide Antibiotics) Rash Reaction: Rash, Medications ergocalciferol (VITAMIN D) 50,000 unit capsule Take 1 capsule (50,000 Units total) by mouth once a week Active coenzyme Q10 10 mg capsule Take 10 capsules (100 mg total) by mouth daily Active magnesium citrate 100 mg tablet Take by mouth Active diclofenac sodium (VOLTAREN) 1 % gel Apply 2 g topically 3 (three) times a day 50 g 1 2 Active Restasis 0.05 % ophthalmic emulsion 4 Active emipumnv-pti-jq on-FA-vit K-lut 8 mg iron-400 mcg-50 mcg tablet Take by mouth Active rosuvastatin (CRESTOR) 10 mg tablet TAKE 1 TABLET BY MOUTH 4 TIMES EVERY WEEK 51 tablet 1 5 Active escitalopram (LEXAPRO) 10 mg tablet TAKE 1 TABLET(10 MG) BY MOUTH DAILY 90 tablet 1 5 Active dicyclomine (BENTYL) 10 mg capsule Take 1 capsule (10 mg total) by mouth 4 (four) times a day before meals and nightly Active meloxicam (MOBIC) 15 mg tablet Take 1 tablet (15 mg total) by mouth daily 30 tablet 5 Active ibandronate (BONIVA) 150 mg tablet 5 Active Active Problems Problem Noted Date Diagnosed Date [...] ordered. Will ask her to see her childcare center administrator Dr. Thompson. Will check CBC and urinalysis. 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, refer as400 developer History of left breast cancer 02/17/2021 Assessment [...] Fracture of foot 01/04/2011 Breast cancer 12/29/2009 Encounters Date Type Department Care Team Description 05/13/2025 3:15 PM CDT Office Visit [facility] at [address] [address] Che Ahuja NP Abdominal pain (Primary Dx); Left lower quadrant abdominal pain 02/22/2025 Orders Only [facility] [address] [place] [address] Aden Lopez MD from Last 3 Months Immunizations Immunization Administration Dates Next Due COVID-19 MRNA (MODERNA) .5 M L (50 MCG) VACCINE (12 YEARS AND UP) 06/07/2023 Influenza, Quad, Adjuvantate d, Intramuscular 06/25/2021,06/14/2020 Influenza, Quadrivalent, Hig h Dose, Preservative Free, Intrr 07/14/2023,07/05/2022 Influenza, Trivalent, Adjuva nted, Intramuscular 09/11/2019 Influenza, Trivalent, High D ose, Split, Preservative Free, Intramuscular 07/18/2024,06/23/2017,06/23/2016,07/31 Moderna SARS-CoV-2 Monovalen t Vaccination (12+ YRS) 07/08/2022,07/08/2021,11/24/2020,10/24 Moderna Sars-cov-2 Bivalent Vaccine 10 mcg/0.2 mL (6 MOS-5 YRS)-[place]/Yellow 07/12/2022 Pneumococcal Conjugate Pcv20 01/03/2023 ZOSTER Recombinant 01/03/2023,09/28/2022 Surgical History Surgery Date Site/Laterality Comments HYSTERECTOMY MASTECTOMY BREAST LUMPECTOMY BUNIONECTOMY REFRACTIVE SURGERY Medical History Medical History Date Comments Osteoporosis Depression Arthritis History of chemotherapy Delayed emergence from general anesthesia Chronic constipation Pancreatic cyst Hyperlipidemia Anxiety Breast cancer (HCC) left Family History Medical History Relation Name Comments Other Father bypass surgery @ 85; /Alive and well; Heart attack Maternal Grandfather Heart attack Maternal Grandmother Pancreatic cancer Mother Cancer, pa ncreas; Cause of : Cancer, pancreas Relation Name Status Comments Father Alive Maternal Grandfather Maternal Grandmother Mother (Age 84) Social History Tobacco Use Types Packs/Day Years Used Date Smoking Tobacco: Never Passive Smoke Exposure: Past Smokeless Tobacco: Never Tobacco Cessation:Counseling Given: Not Answered Alcohol Use Standard Drinks/Week Comments Yes 0 [...] on file Legal Sex Female 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 Gender Identity Female 02/14/2021 8:37 AM CDT Sexual Orientation Straight 02/14/2021 8: 37 AM CDT Obstetrics History Last Filed Vital Signs Vital Sign Reading Time Taken Comments Blood Pressure 126/82 05/13/2025 2:43 PM CDT Pulse 85 05/13/2025 2:43 PM CDT Temperature 36.7 C (98.1 F) 05/13/2025 2:43 PM CDT Respiratory Rate 20 05/13/2025 2:43 PM CDT Oxygen Saturation 97% 05/13/2025 2:43 PM CDT Inhaled Oxygen Concentration - - Weight 59.4 kg (131 lb) 05/13/2025 2:43 PM CDT Height 152.4 cm (5') 01/31/2025 10:51 AM CDT Body Mass Index 25.58 01/31/2025 10:51 AM CDT Plan of Treatment Health Maintenance Due Date Last Done Comments Depression Screening 1945 Hepatitis C Screening 1945 Hepatitis B Screening 1963 Well Visit 65+ 12/24/2011 DTaP/Tdap/Td Vaccine (2 - Td or Tdap) 03/07/2018 03/07/2008 Fall Risk Assessment 02/18/2022 02/18/2021 Osteoporosis Screening-Bone Density Scan 11/26/2024 11/26/2022, 11/07/2020 Covid-19 Vaccine (2024-2 6 season) 2025 06/07/2023, 07/12/2022, 07/12/2022, Additional history exists Influenza Vaccine (#1) 2025 , 07/14/2023, 07/05/2022, Additional history exists Colon Cancer Screening-CT Colonography Discontinued 01/07/2019 Colon Cancer Screening-Colonoscopy Discontinued 01/07/2019 Colon Cancer Screening-DNA Stool Discontinued 01/08/20 19 Colon Cancer Screening-FIT Discontinued 01/07/2019 Colon Cancer Screening-FOBT Discontinued 01/07/2019 Colon Cancer Screening-Sigmoidoscopy Discontinued 01/07/2019 Colorectal Cancer Screening Discontinued Pneumococcal vaccine 65+ Completed 01/03/2023 Zoster Vaccine Completed 01/03/2023, 09/28/2022 Breast Cancer Screening-Mammogram Discontinued 05/31/2024, 03/31/2023, 02/24/2022, Additional history exists Procedures Procedure Name Priority Date/Time Associated Diagnosis Comments POCT URINALYSIS DIPSTICK Routine 05/13/2025 2:53 PM CDT Abdominal pain Left lower quadrant abdominal pain SCAN - RADIOLOGY/IMAGING 02/22/2025 4:30 PM CDT SCREENING MAMMOGRAM RIGHT W CHUCK UNILATERAL ONLY Schedule Routine, Read Routine (OP Routine) 05/31/2024 11:43 AM CDT Screening mammogram, encounter for DEXA AXIAL SKELETON BONE DENSITY 1 OR MORE SITES Schedule Routine, Read Routine (OP Routine) 11/07/2020 COLONOSCOPY Routine 01/07/2019 from Last 3 Months or Most Recently Relevant to Health Maintenance Results * (ABNORMAL) POCT urinalysis dipstick (05/13/2025 2:53 PM CDT) Color, Urine, POC Light Yellow Clarity, ur, POC Cloudy(A) Clear Glucose, ur, POC Negative Negative Bilirubin, ur, POC Negative Negative Ketones, ur, POC 40.(A) Negative Specific [place], POC 1.010 1.003 - 1.030 Blood, ur, POC Non-hemolyze d, trace(A) Negative pH, ur, POC 6.0 5.0 - 8.0 Protein, ur, POC Negative Negative Urobilinogen, urine, POC 0.2 0.2 - 1.0 mg/dL Nitrite, ur, POC Negative Negative Leukocytes, ur, POC Trace(A) Negative Lot Number [id number] Urine 05/13/2025 2:53 PM CDT Che Ahuja NP POINT OF CARE TEST ORDERAB LES Final Result * SCAN - RADIOLOGY/IMAGING (02/22/2025 4:30 PM CDT) Anatomical Region Laterality Modality Other Aden Lopez MD Final Result * Screening Mammogram Right W Chuck Unilateral Only (05/31/2024 11:43 AM CDT) Anatomical Region Laterality Modality Breast Right Mammography Narrative 06/01/2024 4:07 PM CDT Mammogram Technique: Right Breast Digital Breast Tomosynthesis, Unilateral C-view 2D Screening mammogram. Views obtained: right craniocaudal and right mediolateral oblique. Computer Aided Detection was performed. Mammogram Findings: The present examination has been compared to prior imaging studies performed at [facility] on 02/24/2022 and 03/31/2023, and at [facility]. [facility] on 12/19/2020. There are scattered areas of fibroglandular density. There is no suspicious abnormality in the right breast. There are no significant changes from the prior study. Patient status post contralateral mastectomy for personal history of breast cancer. Impression: There is no mammographic evidence of malignancy. As this patient is over 75 years of age, further mammographic screening can be obtained as clinically indicated. OVERALL FINAL ASSESSMENT: BI-RADS CATEGORY 1: Negative. Procedure Note Bernabe Lockhart MD - 06/01/2024 Mammogram Technique: Right Breast Digital Breast Tomosynthesis, Unilateral C-view 2DScreening mammogram. Views obtained: right craniocaudal and right mediolateral oblique. Computer Aided Detection was performed. Mammogram Findings: The present examination has been compared to prior imaging studies performed at [facility] on 02/24/2022 and 03/31/2023, and at [facility]. [facility] on 12/19/2020. There are scattered areas of fibroglandular density. There is no suspicious abnormality in the right breast. There are no significant changes from the prior study. Patient status post contralateral mastectomy for personal history ofbreast cancer. Impression: There is no mammographic evidence of malignancy. As this patient is over 75 years of age, further mammographic screeningcan be obtained as clinically indicated. OVERALL FINAL ASSESSMENT: BI-RADS CATEGORY 1: Negative. us Self Screening Mammogram IMG MAMMO PROCEDURES Fi nal Result * Dexa Axial Skeleton Bone Density 1 or 2 Site (11/07/2020) Anatomical Region Laterality Modality Body N/A Radiographic [place] ging Narrative 11/07/2020 Pt had at [facility] us Historical Provider IMCallie DXA PROCEDURES Final Result * Colonoscopy (01/07/2019) Anatomical Region Laterality Modality Other Narrative 01/07/[address] rhea reese in 5 years us Historical Provider ENDOSCOPY PROCEDURES Janie l Result from Last 3 Months or Most Recently Relevant to Health Maintenance Insurance MEDICARE [facility] [place] [id number] MEDICARE [facility] MEDICARE [facility] [place] [id number] MEDICARE [facility] FEDERAL Advance Directives For more information, please contact: [phone] * Full Code (Latest Code Status on File) Date Activated Date Inactivated Comments 02/18/2021 9:29 AM 02/18/2021 3:47 PM Care Teams Frit Burner Relationship Specialty Start Date End Date Aden Lopez MD PCP - General Internal Medicine 06/11/20
--- OUTSIDE RECORDS SUMMARY | 2025-05-13 18:26 | XMS_ITS | Encounter Summary ---
Author Organization [facility] Healthcare Address [address] [place] [address] Care Team Providers Care Yarn Dry Room Worker Name Role Phone Raza Romero MD Primary Care Provider [phone] Aden Lopez MD Primary Care Provider [phone] Encounter Details Date Type Department Care Team (Late st Contact Info) Description 11/22/2018 Orders Only Internal Medicine Raza Romero MD [address] [address] Social History Tobacco Use Types Packs/Day Years Used Date Smoking Tobacco: Never Alcohol Use Standard Drinks/Week Comments Yes 0 (1 standard drink = 0.6 oz pur e alcohol) Comments Unknown Sex and Gender Information Value Date Recorded Sex Assigned at Not on file Legal Sex Female 4:08 AM SENIOR OFFICE 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
--- OUTSIDE RECORDS SUMMARY | 2025-05-13 18:26 | XMS_ITS | Encounter Summary ---
Author Organization [facility] Address [address] [place] [address] Phone Care Team Providers Care Behavioral Health Care Manager Name Role Phone Aden Lopez MD Primary Care Provider [phone] Encounter Details Date Type Department Care Team (Latest Contact Info) Description 12/21/2022 Orders Only [facility] Scanning, Provider Social History Tobacco Use Types Packs/Day Years Used Date Smoking Tobacco: Never Smokeless Tobacco: Never Alcohol Use Standard Drinks/Week [...] on file Legal Sex Female 4:[address]INGS INSPECTOR Gender Identity Female 02/14/2021 8:37 AM CDT Sexual Orientation Straight 02/14/2021 8: 37 AM CDT documented as of this encounter Plan of Treatment Not on file documented as of this encounter Procedures Procedure Name Priority Date/Time Associated Diagnosis Comments SCAN - RADIOLOGY/IMAGING 12/21/2022 documented in this encounter Results * SCAN - RADIOLOGY/IMAGING (12/21/2022) Anatomical Region Laterality Modality Other us Provider Scanning Final Result documented in this encounter Visit Diagnoses Not on filedocumented in this encounter Care Teams Behavioral Health Care Manager Relationship Specialty Start Date End Date Aden Lopez MD PCP - General Internal Medicine 06/11/20 documented as of this encounter
--- OUTSIDE RECORDS SUMMARY | 2025-05-13 18:26 | XMS_ITS | Clinical Summary ---
Author Organization [facility] Address [facility] [place] [address] Care Team Providers Care Poultry Husbandry Worker Name Role Phone Unavailable Primary Care Provider Unavailabl e Social History Tobacco Use Types Packs/Day Years Used Date Smoking Tobacco: Never Assessed Comments Unknown Sex and Gender Information Value Date Recorded Sex Assigned at Not on file Legal Sex Female 8:25 PM CDT Gender Identity Not on file Sexual Orientation Not on file Plan of Treatment Health Maintenance Due Date Last Done Comments Hepatitis C 1963 DTaP, Tdap and Td Vaccines ( 1 - Tdap) 1965 Pneumococcal Vaccine: 50+ Ye ars (1 of 1 - PCV) 1996 Zoster Vaccines (1 of 2) 1996 Dexa Scan (General) 12/24/2011 RSV Immunization or 60+ Years (1 - 1-dose 75+ series) 2021 COVID-19 Vaccine (2023-2 5 season) 2025 Meningococcal B Vaccine Aged Out No l onger eligible based on patient's age to complete this topic Meningococcal Vaccine Aged Out No greg fernie eligible based on patient's age to complete this topic RSV Immunizations Under 20 Months Aged Out No longer eligible based on patient's age to complete this topic
--- OUTSIDE RECORDS SUMMARY | 2025-05-13 18:27 | XMS_ITS | Clinical Summary ---
Author Organization [facility] Address [address] [place] [address] Phone Care Team Providers Care Security Expert Name Role Phone Andrew Rene MD Primary Care Provider Allergies Active Allergy Reactions Criticality Noted Date Comments Penicillins Other (See Comments) 10/09/2009 Medications EZETIMIBE/SIMVAS TATIN (VYTORIN 06/17 PO) Take by mouth. 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 Gender Identity Not on file Sexual Orientation Not on file Last Filed Vital Signs Vital Sign Reading Time Taken Comments Blood Pressure 134/66 12/29/2009 12:58 PM CDT Pulse 83 12/29/2009 12:58 PM CDT Temperature 36.6 C (97.8 F) 12/29/2009 12:58 PM CDT Respiratory Rate 16 12/29/2009 12:58 PM CDT Oxygen Saturation - - Inhaled Oxygen Concentration - - Weight 67.6 kg (149 lb) 01/04/2011 12:57 PM CDT Height 160 cm (5' 3) 01/04/2011 12:57 PM CDT Body Mass Index 26.39 01/04/2011 12:57 PM CDT Plan of Treatment Health Maintenance Due Date Last Done Comments DTAP/TDAP/TD VACCINES (1 - Tdap) 1965 PNEUMOCOCCAL VACCINE 50+ YEARS (1 of 1 - PCV) 12/23/18 97 ZOSTER VACCINE (1 of 2) 1996 OSTEOPOROSIS SCREENING 12/24/2011 RSV VACCINE (60+ or ) (1 - 1-dose 75+ series) 2021 INFLUENZA VACCINE (#1) 2025 Insurance [employer]IONS PPO [id number] Care Teams Security Expert Relationship Specialty Start Date End Date Andrew Rene MD [address] [place] [id number] PCP - General Family Practice 12/29/09
--- OUTSIDE RECORDS SUMMARY | 2025-05-13 18:27 | XMS_ITS | Encounter Summary ---
Author Organization [facility] Address [address] [place] [address] Phone Care Team Providers Care Apiarist Name Role Phone Aden Lopez MD Primary Care Provider [phone] Encounter Details Date Type Department Care Team (Latest Contact Info) Description 06/27/2023 Orders Only [facility] Scanning, Provider [...] on file Legal Sex Female 4:08 AM MANAGER RENEWABLE ENERGY Gender Identity Female 02/14/2021 8:37 AM CDT Sexual Orientation Straight 02/14/2021 8: 37 AM CDT documented as of this encounter Plan of Treatment Not on file documented as of this encounter Procedures Procedure Name Priority Date/Time Associated Diagnosis Comments SCAN - RADIOLOGY/IMAGING 06/27/2023 SCAN - LABS 06/27/2023 documented in this encounter Results * SCAN - LABS (06/27/2023) us Provider Scanning Final Result * SCAN - RADIOLOGY/IMAGING (06/27/2023) Anatomical Region Laterality Modality Other us Provider Scanning Final Result documented in this encounter Visit Diagnoses Not on filedocumented in this encounter Care Teams Apiarist Relationship Specialty Start Date End Date Aden Lopez MD PCP - General Internal Medicine 06/11/20 documented as of this encounter
--- OUTSIDE RECORDS SUMMARY | 2025-05-13 18:27 | XMS_ITS | Encounter Summary ---
Author Organization [facility] Address [address] [place] [address] Phone Care Team Providers Care Saw Feeder Name Role Phone Aden Lopez MD Primary Care Provider [phone] Encounter Details Date Type Department Care Team (Latest Contact Info) Description 06/26/2023 Orders Only [facility] Scanning, Provider [...] on file Legal Sex Female 4:08 AM HEALTH INFORMATION PROVIDER Gender Identity Female 02/14/2021 8:37 AM CDT Sexual Orientation Straight 02/14/2021 8: 37 AM CDT documented as of this encounter Plan of Treatment Scheduled Orders Name Type Priority Associated Diagnoses Orde r Schedule Cardiology Document Scan Cardiac Services Ordered: 06/26/2023 documented as of this encounter Procedures Procedure Name Priority Date/Time Associated Diagnosis Comments SCAN - RADIOLOGY/IMAGING 06/26/2023 documented in this encounter Results * SCAN - RADIOLOGY/IMAGING (06/26/2023) Anatomical Region Laterality Modality Other us Provider Scanning Edited Result - Final documented in this encounter Visit Diagnoses Not on filedocumented in this encounter Care Teams Saw Feeder Relationship Specialty Start Date End Date Aden Lopez MD PCP - General Internal Medicine 06/11/20 documented as of this encounter
[2025-05-13] MEDS: CIPROFLOXACIN 500 MG TAB PO (18:44)
--- OUTSIDE RECORDS SUMMARY | 2025-05-13 18:53 | XMS_ITS ---
Author Organization [facility] Address [facility] [place] [address] Care Team Providers Care Tea And Spice Supervisor Name Role Phone Aden Lopez MD Primary Care Provider [phone] Active Problems Problem Noted Date Diagnosed Date [...] ordered. Will ask her to see her regional climate change analyst Dr. Thompson. Will check CBC and urinalysis. 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, refer pump rebuilder History of left breast cancer 02/17/2021 Assessment [...]
--- OUTSIDE RECORDS SUMMARY | 2025-05-13 18:53 | XMS_ITS | Clinical Summary ---
Author Organization [facility] Address [facility] [place] [address] Care Team Providers Care Automotive Collision Estimator Name Role Phone Unavailable Primary Care Provider [...]
--- OUTSIDE RECORDS SUMMARY | 2025-05-13 18:53 | XMS_ITS | Encounter Summary ---
Author Organization [facility] Healthcare Address [address] [place] [address] Care Team Providers Care Belt Sewer Name Role Phone Raza Romero MD Primary Care Provider [phone] Aden Lopez MD Primary Care Provider Encounter Details Date Type Department Care Team (Late st Contact Info) Description 11/22/2018 Orders Only Internal Medicine Raza Romero MD [address] [address] Social History Tobacco Use Types Packs/Day Years Used Date Smoking Tobacco: Never Alcohol Use Standard Drinks/Week Comments Yes 0 (1 standard drink = 0.6 oz pur e alcohol) Comments Unknown Sex and Gender Information Value Date Recorded Sex Assigned at Not on file Legal Sex Female 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 Gender Identity Female 02/14/2021 8:37 AM CDT Sexual Orientation Straight 02/14/2021 8: 37 AM CDT documented as of this encounter Plan of Treatment Not on file documented as of this encounter Visit Diagnoses Not on filedocumented in this encounter Care Teams Belt Sewer Relationship Specialty Start Date End Date Raza Romero MD [address] [facility] [address] [place] [address] PCP - General 06/24/16 06/10/20 Aden Lopez MD [address] [facility] [address] [place] [address] PCP - General Internal Medicine 06/11/20 documented as of this encounter
--- OUTSIDE RECORDS SUMMARY | 2025-05-13 18:53 | XMS_ITS | Encounter Summary ---
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
--- OUTSIDE RECORDS SUMMARY | 2025-05-13 18:53 | XMS_ITS | Clinical Summary ---
Author Organization [facility] Address [address] [place] [address] Phone Care Team Providers Care Grill Prep Cook Name Role Phone Andrew Rene MD Primary Care Provider [phone] Allergies Active Allergy Reactions Criticality Noted Date [...] on file Legal Sex Female 5:42 AM COMMUNICATIONS LEAD Gender Identity Not on file Sexual Orientation [...] INFLUENZA VACCINE (#1) 2025 Insurance OPTIONS PPO [id number] Care Teams Grill Prep Cook Relationship Specialty Start Date End Date Andrew Rene MD [address] [place] [id number] PCP - General Family Practice 12/29/09
--- OUTSIDE RECORDS SUMMARY | 2025-05-13 18:53 | XMS_ITS | Clinical Summary ---
Author Organization [facility] Address [address] [place] [address] Care Team Providers Care Outside Cutter Hand Name Role Phone Raza Romero MD Primary Care Provider [phone] Source Comments [facility],non-owned Affiliates and Associated Physician Practices is amultiple site organization consisting of ambulatory clinics and hospital sitesin [place], [place] and [place]. This disclosure is being madepursuant to the Care Everywhere program and may not contain all information available regarding this patient. Last updated 18.[facility] Allergies Active Allergy Reactions Criticality Noted Date [...] on file Legal Sex Female 6:53 PM PLANT AND EQUIPMENT WORKER Gender Identity Not on file Sexual Orientation Not on file Last Filed Vital Signs Vital Sign Reading Time Taken Comments Blood Pressure 106/62 10/17/2017 5:47 PM PLANT AND EQUIPMENT WORKER Pulse 76 10/17/2017 5:47 PM PLANT AND EQUIPMENT WORKER Temperature 36.9 C (98.4 F) 10/17/2017 5:47 PM PLANT AND EQUIPMENT WORKER Respiratory Rate 16 10/17/2017 5:47 PM PLANT AND EQUIPMENT WORKER Oxygen Saturation 98% 10/17/2017 5:47 PM PLANT AND EQUIPMENT WORKER Inhaled Oxygen Concentration - - Weight 59 kg (130 lb) 10/17/2017 5:47 PM PLANT AND EQUIPMENT WORKER Height 157.5 cm (5' 2) 10/17/2017 5:47 PM PLANT AND EQUIPMENT WORKER Body Mass Index 23.78 10/17/2017 5:47 PM PLANT AND EQUIPMENT WORKER Plan of Treatment Health Maintenance Due Date [...] this topic Insurance ANTHEM MEDICARE Care Teams Outside Cutter Hand Relationship Specialty Start Date End Date Raza Romero MD PCP - General Endocrinology 10/23/16
--- OUTSIDE RECORDS SUMMARY | 2025-05-13 18:53 | XMS_ITS | Encounter Summary ---
Author Organization [facility] Address [address] [place] [address] Phone Care Team Providers Care Rn Hospital Name Role Phone Aden Lopez MD Primary Care Provider [phone] Encounter Details Date Type Department Care Team [...] on file Legal Sex Female 4:08 AM MATERIALS MANAGEMENT CLERK Gender Identity Female 02/14/2021 8:37 AM [...] on filedocumented in this encounter Care Teams Rn Hospital Relationship Specialty Start Date End Date Aden Lopez MD PCP - General Internal Medicine 06/11/20 documented as of this encounter
--- OUTSIDE RECORDS SUMMARY | 2025-05-13 18:53 | XMS_ITS | Clinical Summary ---
Author Organization [facility] Address [address] [place] [address] Care Team Providers Care Small Engine Trainer Name Role Phone Aden Lopez MD Primary Care Provider [phone] Allergies Active Allergy Reactions Criticality Noted Date [...] Restasis 0.05 % ophthalmic emulsion 4 Active szfelcis-vor-tj on-FA-vit K-lut 8 mg iron-400 mcg-50 mcg [...] ordered. Will ask her to see her music sound light technician Dr. Thompson. Will check CBC and urinalysis. 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, refer buffing wheel raker History of left breast cancer 02/17/2021 Assessment [...] Description 05/13/2025 3:15 PM CDT Office Visit [facility] Convenient Care at [address] [address] Che Ahuja NP Abdominal pain (Primary Dx); Left lower quadrant abdominal pain 02/22/2025 Orders Only [facility] [address] [place] [address] Aden Lopez MD from Last 3 [...] Bivalent Vaccine 10 mcg/0.2 mL (6 MOS-5 YRS)-[place]/Yellow 07/12/2022 Pneumococcal Conjugate Pcv20 01/03/2023 ZOSTER Recombinant [...] on file Legal Sex Female 4:08 AM CONTACT LENS CUTTER Gender Identity Female 02/14/2021 8:37 AM CDT [...] Negative Ketones, ur, POC 40.(A) Negative Specific [place], POC 1.010 1.003 - 1.030 Blood, ur, POC Non-hemolyze d, trace(A) Negative pH, ur, POC 6.0 5.0 - 8.0 Protein, ur, POC Negative Negative Urobilinogen, urine, POC 0.2 0.2 - 1.0 mg/dL Nitrite, ur, POC Negative Negative Leukocytes, ur, POC Trace(A) Negative Lot Number [id number] Urine 05/13/2025 2:53 PM CDT Che Ahuja [...] compared to prior imaging studies performed at [facility] on 02/24/2022 and 03/31/2023, and at [facility] on 12/19/2020. There are scattered areas of [...] compared to prior imaging studies performed at [facility] on 02/24/2022 and 03/31/2023, and at [facility] on 12/19/2020. There are scattered areas of [...] [place] ging Narrative 11/07/2020 Pt had at [facility] [place] Historical Provider IMCallie DXA PROCEDURES Final Result * Colonoscopy (01/07/2019) Anatomical Region Laterality Modality Other Narrative 01/07/[address] rhea reese in 5 years us Historical Provider ENDOSCOPY PROCEDURES Janie l Result from Last 3 Months or Most Recently Relevant to Health Maintenance Insurance MEDICARE [facility] [place] [id number] MEDICARE [facility] MEDICARE [place] [id number] MEDICARE [facility] FEDERAL Advance Directives For more information, please contact: [phone] * Full Code (Latest Code Status on File) Date Activated Date Inactivated Comments 02/18/2021 9:29 AM 02/18/2021 3:47 PM Care Teams Small Engine Trainer Relationship Specialty Start Date End Date Aden Lopez MD PCP - General Internal Medicine 06/11/20
--- OUTSIDE RECORDS SUMMARY | 2025-05-13 18:53 | XMS_ITS | Encounter Summary ---
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
== END 2025-05-13 18:51 | disposition home or self-care (01) ==
PROVIDERS: Emergency Medicine; Emergency Provider Student in an Organized Health Care Education/Training Program; PCP Internal Medicine
DX: K57.32 Diverticulitis of large intestine without perforation or abscess without bleeding (principal); R82.4 Acetonuria; E78.2 Mixed hyperlipidemia
CPT/HCPCS: 36415; 74177; 80053; 81001; 83605; 83690; 85025; 87086; 96360; 99284; A9270; J7030; Q9967

== ENCOUNTER 2025-05-17 12:56 | Outpatient (CLI) | payer MEDICARE, BC, SELFPAY ==
--- NOTE | ~2025-05-17 | MMUS_ITS ---
EXAMINATION: US breast RT limited, MM diagnostic bianca RT w rosaura HISTORY: Palpable abnormality in the right breast at the 2:00 position. TECHNIQUE: Diagnostic images of the right breast]] were performed using full field digital mammography. 3-D tomosynthesis were also obtained and synthetic 2- D images were generated. CAD analysis was submitted and interpreted. High- resolution right breast ultrasound was performed.] ] COMPARISON: 10/03/2019 BREAST PARENCHYMAL COMPOSITION: There are scattered areas of fibroglandular density. FINDINGS: MAMMOGRAPHIC FINDINGS: No suspicious calcifications, masses or architectural distortion. ULTRASOUND: No cystic or solid mass identified in the area of concern in the right breast in the 2:00 position. IMPRESSION/RECOMMENDATION: 1. No sonographic or mammographic abnormality in the right breast. Annual screening mammogram recommended. BI-RADS2: Benign Reviewed, dictated and finalized at location Q. IMPRESSION/RECOMMENDATION: 1. No sonographic or mammographic abnormality in the right breast. Annual scree jina mammogram recommended. BI-RADS2: Benign IMPRESSION/RECOMMENDATION: 1. No sonographic or mammographic abnormality in the right breast. Annual scree jina mammogram recommended. BI-RADS2: Benign
--- OUTSIDE RECORDS SUMMARY | 2025-05-17 12:59 | XMS_ITS | Encounter Summary ---
Author Organization [facility] Address [address] [place] [address] Phone Care Team Providers Care Baseball Sewer Hand Name Role Phone Aden Lopez MD Primary Care Provider [phone] Encounter Details Date Type Department Care Team [...] on file Legal Sex Female 4:08 AM MUD GRINDER Gender Identity Female 02/14/2021 8:37 AM CDT [...] on filedocumented in this encounter Care Teams Baseball Sewer Hand Relationship Specialty Start Date End Date Aden Lopez MD PCP - General Internal Medicine 06/11/20 documented as of this encounter
--- OUTSIDE RECORDS SUMMARY | 2025-05-17 12:59 | XMS_ITS | Encounter Summary ---
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
--- OUTSIDE RECORDS SUMMARY | 2025-05-17 12:59 | XMS_ITS ---
Author Organization [facility] Address [facility] [place] [address] Care Team Providers Care Hand Button Splitter Name Role Phone Aden Lopez MD Primary Care Provider [phone] Active Problems Problem Noted Date Diagnosed Date [...] ordered. Will ask her to see her bill clerk Dr. Thompson. Will check CBC and urinalysis. 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, refer capacitor repairer History of left breast cancer 02/17/2021 Assessment [...]
--- OUTSIDE RECORDS SUMMARY | 2025-05-17 12:59 | XMS_ITS | Clinical Summary ---
Author Organization [facility] Address [address] [place] [address] Care Team Providers Care Turner Splitter Machine Operator Name Role Phone Raza Romero MD Primary Care Provider [phone] Source Comments [facility],non-owned Affiliates and Associated Physician Practices is amultiple site organization consisting of ambulatory clinics and hospital sitesin [place], [place] and [place]. This disclosure is being madepursuant to the Care Everywhere program and may not contain all information available regarding this patient. Last updated 18.[facility] Allergies Active Allergy Reactions Criticality Noted Date [...] on file Legal Sex Female 6:53 PM TANK FARM GAUGER Gender Identity Not on file Sexual Orientation Not on file Last Filed Vital Signs Vital Sign Reading Time Taken Comments Blood Pressure 106/62 10/17/2017 5:47 PM TANK FARM GAUGER Pulse 76 10/17/2017 5:47 PM TANK FARM GAUGER Temperature 36.9 C (98.4 F) 10/17/2017 5:47 PM TANK FARM GAUGER Respiratory Rate 16 10/17/2017 5:47 PM TANK FARM GAUGER Oxygen Saturation 98% 10/17/2017 5:47 PM TANK FARM GAUGER Inhaled Oxygen Concentration - - Weight 59 kg (130 lb) 10/17/2017 5:47 PM TANK FARM GAUGER Height 157.5 cm (5' 2) 10/17/2017 5:47 PM TANK FARM GAUGER Body Mass Index 23.78 10/17/2017 5:47 PM TANK FARM GAUGER Plan of Treatment Health Maintenance Due Date [...] age to complete this topic Insurance ANTHEM [facility] Address: [facility] [address] [place] [address] MEDICARE Care Teams Turner Splitter Machine Operator Relationship Specialty Start Date End Date Raza Romero MD PCP - General Endocrinology 10/23/16
--- OUTSIDE RECORDS SUMMARY | 2025-05-17 12:59 | XMS_ITS | Encounter Summary ---
Author Organization [facility] Address [address] [place] [address] Care Team Providers Care Camouflage Specialist Name Role Phone Raza Romero MD Primary Care Provider [phone] Aden Lopez MD Primary Care Provider [phone] Encounter Details Date Type Department Care Team (Late st Contact Info) Description 11/22/2018 Orders Only Internal Medicine Raza Romero MD [address] [address] Social History Tobacco Use Types Packs/Day Years Used Date Smoking Tobacco: Never Alcohol Use Standard Drinks/Week Comments Yes 0 (1 standard drink = 0.6 oz pur e alcohol) Comments Unknown Sex and Gender Information Value Date Recorded Sex Assigned at Not on file Legal Sex Female 4:08 AM SERVICE DISPATCHER Gender Identity Female 02/14/2021 8:37 AM CDT Sexual Orientation Straight 02/14/2021 8: 37 AM CDT documented as of this encounter Plan of Treatment Not on file documented as of this encounter Visit Diagnoses Not on filedocumented in this encounter Care Teams Camouflage Specialist Relationship Specialty Start Date End Date Raza Romero MD [address] [facility] [address] [place] [address] PCP - General 06/24/16 06/10/20 Aden Lopez MD [address] [facility] [address] [place] [address] PCP - General Internal Medicine 06/11/20 documented as of this encounter
--- OUTSIDE RECORDS SUMMARY | 2025-05-17 12:59 | XMS_ITS | Encounter Summary ---
Author Organization [facility] Address [address] [place] [address] Care Team Providers Care Playground Official Name Role Phone Aden Lopez MD Primary Care Provider [phone] Encounter Details Date Type Department Care Team (Late st Contact Info) Description 05/15/2025 Results Follow-Up [facility] Convenient Care at [address] [address] Hermilo Lamas, VLADIMIR [address] [place] [address] [address] [place] [address] Urine culture Urine, clean voided Social History Tobacco Use Types Packs/Day Years [...] on file Legal Sex Female 4:08 AM FAMILY ASSISTANT Gender Identity Female 02/14/2021 8:37 AM CDT Sexual Orientation Straight 02/14/2021 8: 37 AM CDT documented as of this encounter Plan of Treatment Not on file documented as of this encounter Visit Diagnoses Not on filedocumented in this encounter Care Teams Playground Official Relationship Specialty Start Date End Date Aden Lopez MD PCP - General Internal Medicine 06/11/20 documented as of this encounter
--- OUTSIDE RECORDS SUMMARY | 2025-05-17 12:59 | XMS_ITS | Clinical Summary ---
Author Organization [facility] Address [address] [place] [address] Care Team Providers Care Process Machine Operator Name Role Phone Aden Lopez MD Primary Care Provider [phone] Allergies Active Allergy Reactions Criticality Noted Date [...] Restasis 0.05 % ophthalmic emulsion 4 Active arkdrpse-hho-on on-FA-vit K-lut 8 mg iron-400 mcg-50 mcg [...] ordered. Will ask her to see her concrete batching plant operator Dr. Tohmpson. Will check CBC and urinalysis. 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, refer referral coordinator History of left breast cancer 02/17/2021 Assessment [...] Encounters Date Type Department Care Team Description 05/15/2025 Results Follow-Up [facility] Convenient Care at [address] [address] Hermilo Lamas NP Urine culture Urine, clean voided 05/13/2025 3:15 PM CDT Office Visit [facility] Convenient Care at [address] [address] Che Ahuja NP Abdominal pain (Primary Dx); Left lower quadrant abdominal pain 05/13/2025 2:52 PM CDT - 05/13/2025 11:59 PM CDT Hospital Encounter [facility] [id number] [place] [address] Abdominal pain; Left lower quadrant abdominal pain Discharge Disposition: Discharge to home or self care 02/22/2025 Orders Only [facility] [address] [facility] [address] [place] [address] Aden Lopez MD from Last 3 [...] Bivalent Vaccine 10 mcg/0.2 mL (6 MOS-5 YRS)-Learned/Yellow 07/12/2022 Pneumococcal Conjugate Pcv20 01/03/2023 ZOSTER Recombinant [...] on file Legal Sex Female 4:08 AM SUPERVISOR FRAME ASSEMBLY Gender Identity Female 02/14/2021 8:37 AM CDT [...] Density Scan 11/26/2024 11/26/2022, 11/07/2020 Covid-19 Vaccine (6 2024-2 6 season) 2025 06/07/2023, 07/12/2022, 07/12/2022, Additional [...] Abdominal pain Left lower quadrant abdominal pain URINE CULTURE Routine 05/13/2025 2:52 PM CDT Abdominal pain Left lower quadrant [...] Negative Ketones, ur, POC 40.(A) Negative Specific [place], POC 1.010 1.003 - 1.030 Blood, ur, POC Non-hemolyze d, trace(A) Negative pH, ur, POC 6.0 5.0 - 8.0 Protein, ur, POC Negative Negative Urobilinogen, urine, POC 0.2 0.2 - 1.0 mg/dL Nitrite, ur, POC Negative Negative Leukocytes, ur, POC Trace(A) Negative Lot Number [id number] Urine 05/13/2025 2:53 PM CDT Che Ahuja NP POINT OF CARE TEST ORDERAB LES Final Result * Urine culture Urine, clean voided (05/13/2025 2:52 PM CDT) Report Final Report: Less than 100,000 colonies/mL (clinically insignificant growth based on current clinical standards) Comment:Testing performed by : [facility], [address] [facility], [place]., [address] Organism (CLINICALLY INSIGNIFICANT GROWTH VALE Urine, clean voided 05/13/2025 2:52 PM CDT 05/13/2025 10:38 PM CDT Narrative VALE BRIGGS - 05/15/2025 7:55 AM CDT Testing performed by [facility] ([phone]) us Che Ahuja LICENSED AND CERTIFIED [facility] LAB MICROBIOLOGY - GENERAL ORDERABLES Final Result [facility] [address] [facility] Department [place] [address] * SCAN - RADIOLOGY/IMAGING (02/22/2025 4:30 PM [...] compared to prior imaging studies performed at [facility] on 02/24/2022 and 03/31/2023, and at [facility] on 12/19/2020. There are scattered [...] compared to prior imaging studies performed at [facility] on 02/24/2022 and 03/31/2023, and at [facility] on 12/19/2020. There are scattered areas of [...] [place] ging Narrative 11/07/2020 Pt had at [facility] Historical Provider MD IMG DXA PROCEDURES Final Result * Colonoscopy (01/07/2019) Anatomical Region Laterality Modality Other Narrative 01/07/[address] rhea reese in 5 years us Historical Provider MD ENDOSCOPY PROCEDURES Janie l Result from Last 3 Months or Most Recently Relevant to Health Maintenance Insurance MEDICARE [employer] [place] [id number] MEDICARE [facility] [place] [address] MEDICARE [facility] [place] [address] MEDICARE [facility] FEDERAL Advance Directives For more information, please contact: [phone] * Full Code (Latest Code Status on File) Date Activated Date Inactivated Comments 02/18/2021 9:29 AM 02/18/2021 3:47 PM Care Teams Process Machine Operator Relationship Specialty Start Date End Date Aden Lopez MD PCP - General Internal Medicine 06/11/20
--- OUTSIDE RECORDS SUMMARY | 2025-05-17 12:59 | XMS_ITS | Clinical Summary ---
Author Organization [facility] Address [facility] [place] [address] Care Team Providers Care Continuous Miner Operator Name Role Phone Unavailable Primary Care Provider [...]
--- OUTSIDE RECORDS SUMMARY | 2025-05-17 12:59 | XMS_ITS | Clinical Summary ---
Author Organization [facility] Address [address] [place] [address] Phone Care Team Providers Care Delicatessen Goods Stock Clerk Name Role Phone Andrew Rene MD Primary Care Provider [phone] Allergies Active Allergy Reactions Criticality Noted Date [...] on file Legal Sex Female 5:42 AM ROOM INSPECTOR Gender Identity Not on file Sexual Orientation [...] INFLUENZA VACCINE (#1) 2025 Insurance OPTIONS PPO [id number] Care Teams Delicatessen Goods Stock Clerk Relationship Specialty Start Date End Date Andrew Rene MD [address] [place] [phone] PCP - General Family Practice 12/29/09
--- OUTSIDE RECORDS SUMMARY | 2025-05-17 12:59 | XMS_ITS | Encounter Summary ---
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
== END 2025-05-17 12:57 | disposition home or self-care (01) ==
LOC: ANHFOHIMG 12:57
PROVIDERS: PCP Internal Medicine; Visit Provider Obstetrics & Gynecology Gynecology
DX: N64.4 Mastodynia (principal)
CPT/HCPCS: 76642; 77061; 77065; G0279

== ENCOUNTER 2025-05-24 17:35 | Emergency (ER) | payer MEDICARE, BC, SELFPAY ==
--- OUTSIDE RECORDS SUMMARY | 2025-05-22 07:26 | XMS_ITS | Encounter Summary ---
Author Organization [facility] Healthcare Address [address] [place] [address] Care Team Providers Care On Line Csr Name Role Phone Aden Lopez MD Primary Care Provider [phone] Reason for Referral * MRI/CAT/PET Scan (Routine) - Closed Specialty Diagnoses / Procedures Referred By Mike hanson Referred To Contact Radiology Diagnoses Abdominal pain Procedures CT Abdomen Pelvis W Contrast Sofie Rodriguez NP [address] [address] Phone: tel: fax: [address] [address] Referral ID Status Reason Start Date Expiration Date Visits Re quested Visits Authorized [id number] Closed 05/20/2025 06/19/2026 1 1 Reason for Visit * MRI/CAT/PET Scan (Routine) - Closed Specialty Diagnoses / Procedures Referred By Mike hanson Referred To Contact Radiology Diagnoses Abdominal pain Procedures CT Abdomen Pelvis W Contrast Sofie Rodriguez NP [address] [address] Phone: tel: fax: [address] [address] Referral ID Status Reason Start Date Expiration Date Visits Re quested Visits Authorized [id number] Closed 05/20/2025 06/19/2026 1 1 Encounter Details Date Type Department Care Team (Latest Contact Info) Description 05/22/2025 7:26 AM CDT - 05/22/2025 11:59 PM CDT Hospital Encounter [facility] [address] [place] [address] Abdominal pain Discharge Disposition: Discharge to home or self care Social History Tobacco Use Types Packs/Day Years [...] on file 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 Gender Identity Female 02/14/2021 8:37 AM CDT Sexual Orientation Straight 02/14/2021 8: 37 AM CDT documented as of this encounter Medications at Time of Discharge ciprofloxacin (CIPRO) 500 mg tablet Take 1 tablet (500 mg total) by mouth 2 (two) times a day 05/13/2025 coenzyme Q10 10 mg capsule Take 10 capsules (100 mg total) by mouth daily diclofenac sodium (VOLTAREN) 1 % gel Apply 2 g topically 3 (three) times a day 50 g 1 01/07/2022 dicyclomine (BENTYL) 10 mg capsule Take 1 capsule (10 mg total) by mouth 4 (four) times a day before meals and nightly ergocalciferol (VITAMIN D) 50,000 unit capsule Take 1 capsule (50,000 Units total) by mouth once a week escitalopram (LEXAPRO) 10 mg tablet TAKE 1 TABLET(10 MG) BY MOUTH DAILY 90 tablet 1 01/16/2025 ibandronate (BONIVA) 150 mg tablet 03/04/2025 magnesium citrate 100 mg tablet Take by mouth metroNIDAZOLE (FLAGYL) 500 mg tablet Take 1 tablet (500 mg total) by mouth 4 (four) times a day 05/13/2025 kuaubthw-vub-wqt n-FA-vit K-lut 8 mg iron-400 mcg-50 mcg tablet Take by mouth Restasis 0.05 % ophthalmic emulsion 06/23/2024 rosuvastatin (CRESTOR) 10 mg tablet TAKE 1 TABLET BY MOUTH 4 TIMES EVERY WEEK 51 tablet 1 01/16/2025 documented as of this encounter Discharge Disposition Disposition Code Departure Means Destination Discharge to home or self care documented in this encounter Plan of Treatment Not on file documented as of this encounter Procedures Procedure Name Priority Date/Time Associated Diagnosis Comments CT ABDOMEN PELVIS W CONTRAST Schedule KARY, Read KARY (Appt Today, Awaiting Results) 05/22/2025 7:56 AM CDT Abdominal pain POCT CREATININE - DEVICE Routine 05/22/2025 7:38 AM CDT documented in this encounter Results * CT Abdomen Pelvis W Contrast (05/22/2025 7:56 AM CDT) Anatomical Region Laterality Modality Body N/A Computed Tomogra phy 05/22/2025 8:49 AM CDT Impressions 05/22/2025 8:49 AM CDT 1. Minimal hazy stranding at the sigmoid colon and sigmoid colon diverticulosis. Findings may be seen as sequelae of diverticulitis versus mild residual inflammatory change of diverticulitis. No drainable fluid collection is seen. 2. 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 This is unchanged in size from 01/07/2021. The Non Critical results were discussed with Sofie Rodriguez NP by Dr. Alexsander Kim on 05/22/2025 8:48 AM. Electronically signed by: Alexsander Kim MD Narrative 05/22/2025 8:49 AM CDT EXAMINATION: Computed tomography of the abdomen and pelvis with intravenous contrast HISTORY: Complication of diverticulitis suspected, patient had prior CT at outside hospital 05/13 confirm diverticulitis, with symptoms improving and subsequently worsening TECHNIQUE: Transaxial computed tomographic images of the abdomen and pelvis were obtained with intravenous contrast according to the standard protocol after the uneventful administration of 69 mL Opti-Ray 350 intravenous contrast. COMPARISON: 08/07/2024 CT abdomen and pelvis, 01/30/2021 MRI of the abdomen FINDINGS: The included lung bases are clear. Included heart size is within normal limits. There is a tiny hiatal hernia. The liver is normal in size and contour. There is focal steatosis at the falciform ligament, similar to 08/07/2024. No suspicious focal hepatic lesion is seen on single phase study. Normal gallbladder. No biliary ductal dilatation. There is a cystic lesion seen in the pancreatic neck/body which measures 1.1 x 0.7 cm, and is unchanged from 02/01/2020 given difference in technique. This is more completely evaluated on 01/30/2021 MRI of the abdomen. 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 The spleen is normal in size. No suspicious adrenal lesion is seen. Simple bilateral renal cysts and lesions too small to characterize are noted. The kidneys enhance symmetrically. No urolithiasis is noted. No hydronephrosis. Normal appearance of the urinary bladder. The uterus is surgically absent. There is colonic diverticulosis. There is mild haziness of the pelvic fat adjacent to the sigmoid colon, which may be seen as sequelae of recent diverticulitis versus current inflammatory process. No evidence of pneumoperitoneum. No suspicious fluid collection is noted. No evidence of abscess formation. No ascites. No CT evidence of pathologic bowel wall thickening or dilatation. No abdominal or pelvic lymphadenopathy. Patent portal vein. The abdominal aorta is normal caliber. Atherosclerotic calcifications of the abdominal aorta. Degenerative changes are noted throughout the spine. Procedure Note Alexsander Kim MD - 05/22/2025 EXAMINATION: Computed tomography of the abdomen and pelvis with intravenous contrast HISTORY: Complication of diverticulitis suspected, patient had prior CT at outside hospital 05/13 confirm diverticulitis, with symptoms improving and subsequently worsening TECHNIQUE: Transaxial computed tomographic images of the abdomen and pelvis were obtained with intravenous contrast according to the standard protocol after the uneventful administration of 69 mL Opti-Ray 350 intravenous contrast. COMPARISON: 08/07/2024 CT abdomen and pelvis, 01/30/2021 MRI of the abdomen FINDINGS: The included lung bases are clear. Included heart size is within normal limits. There is a tiny hiatal hernia. The liver is normal in size and contour. There is focal steatosis at the falciform ligament, similar to 08/07/2024. No suspicious focal hepatic lesion is seen on single phase study. Normal gallbladder. No biliary ductal dilatation. There is a cystic lesion seen in the pancreatic neck/body which measures 1.1 x 0.7 cm, and is unchanged from 02/01/2020 given difference in technique. This is more completely evaluated on 01/30/2021 MRI of the abdomen. 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 The spleen is normal in size. No suspicious adrenal lesion is seen. Simple bilateral renal cysts and lesions too small to characterize are noted. The kidneys enhance symmetrically. No urolithiasis is noted. No hydronephrosis. Normal appearance of the urinary bladder. The uterus is surgically absent. There is colonic diverticulosis. There is mild haziness of the pelvic fat adjacent to the sigmoid colon, which may be seen as sequelae of recent diverticulitis versus current inflammatory process. No evidence of pneumoperitoneum. No suspicious fluid collection is noted. No evidence of abscess formation. No ascites. No CT evidence of pathologic bowel wall thickening or dilatation. No abdominal or pelvic lymphadenopathy. Patent portal vein. The abdominal aorta is normal caliber. Atherosclerotic calcifications of the abdominal aorta. Degenerative changes are noted throughout the spine. IMPRESSION: 1. Minimal hazy stranding at the sigmoid colon and sigmoid colon diverticulosis. Findings may be seen as sequelae of diverticulitis versus mild residual inflammatory change of diverticulitis. No drainable fluid collection is seen. 2. 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 This is unchanged in size from 01/07/2021. The Non Critical results were discussed with Sofie Rodriguez NP by Dr. Alexsander Kim on 05/22/2025 8:48 AM. Electronically signed by: Alexsander Kim MD Sofie Rodriguez NP IMG CT PROCEDURES Final Result * (ABNORMAL) POCT creatinine (05/22/2025 7:38 AM CDT) Creatinine POC 1.6(H) 0.6 - 1.1 mg/dL Blood 05/22/2025 7:38 AM CDT 05/22/2025 7:38 AM CDT us Sofie Rodriguez GASOLINE ATTENDANT LAB POCT ORDERABLES - DE VICE Final Result [facility] Department [place] [address] documented in this encounter Visit Diagnoses Diagnosis Abdominal pain Abdominal pain, unspecified site documented in this encounter Administered Medications Inactive Administered Medications - up to 3 most recent administrations Medication Order MAR Action Action Date Dose Rate Site ioversoL (OPTIRAY 350) syringe 75 mL 75 mL, intravenous, Once in imaging, contrast, Starting on Tue05/22/25 at 0745, For 1 dose Contrast Given 05/22/2025 7:49 AM CDT 69 mL documented in this encounter Orders Medications Ordered That David ht Not Have Been Administered Count Last Ordered Date First Ordered Date ioversoL (OPTIRAY 350) syringe 75 mL 1 04/30 documented in this encounter Care Teams On Line Csr Relationship Specialty Start Date End Date Aden Lopez MD PCP - General Internal Medicine 06/11/20 documented as of this encounter
--- OUTSIDE RECORDS SUMMARY | 2025-05-24 17:38 | XMS_ITS | Encounter Summary ---
Author Organization [facility] Healthcare Address [address] [place] [address] Care Team Providers Care Electric Plater Name Role Phone Raza Romero MD Primary Care Provider [phone] Aden Lopez MD Primary Care Provider [phone] Encounter Details Date Type Department Care Team (Late st Contact Info) Description 11/22/2018 Orders Only Internal Medicine Raza Romero MD [address] [address] Social History Tobacco Use Types Packs/Day Years Used Date Smoking Tobacco: Never Alcohol Use Standard Drinks/Week Comments Yes 0 (1 standard drink = 0.6 oz pur e alcohol) Comments Unknown Sex and Gender Information Value Date Recorded Sex Assigned at Not on file 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 [address] [place] [address] PCP - General 06/24/16 06/10/20 Aden Lopez MD [address] [facility] [address] [place] [address] PCP - General Internal Medicine 06/11/20 documented as of this encounter
--- OUTSIDE RECORDS SUMMARY | 2025-05-24 17:38 | XMS_ITS ---
Author Organization [facility] Address [address] [place] [address] Care Team Providers Care Pulpwood Dealer Name Role Phone Aden Lopez MD Primary Care Provider [phone] Active Problems Problem Noted Date Diagnosed Date Abdominal pain 05/20/2025 Assessment & Plan (05/20/2025 12:05 PM CDT): I do not have ED records for review and as symptoms have worsened we will repeat imaging here today as well as laboratory studies and UA. We did discuss using Miralax for constipation on a more regular basis, was using mag citrate. Sacroiliac (ligament) sprain 01/31/2025 Assessment & Plan [...] ordered. 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 Will check CBC and urinalysis. 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, refer gynecologist History of left breast cancer 02/17/2021 Assessment [...] Dose Automatic Entry Manual Entr y DLP 2,109 mGycm 2,109 mGycm 0 mGycm
--- OUTSIDE RECORDS SUMMARY | 2025-05-24 17:38 | XMS_ITS | Clinical Summary ---
Author Organization [facility] Address [address] [facility] [place] [address] Care Team Providers Care Durable Medical Equipment Technician Name Role Phone Raza Romero MD Primary Care Provider [phone] Source Comments [facility],non-owned Affiliates and Associated Physician Practices is amultiple site organization consisting of ambulatory clinics and hospital sitesin [place], [place], [place] and [place]. This disclosure is being madepursuant to the Care Everywhere program and may not contain all information available regarding this patient. 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 Gender Identity Not on file Sexual Orientation Not on file Last Filed Vital Signs Vital Sign Reading Time Taken Comments Blood Pressure 106/62 10/17/2017 5:47 PM LITHOGRAPHING MACHINE OPERATOR Pulse 76 10/17/2017 5:47 PM LITHOGRAPHING MACHINE OPERATOR Temperature 36.9 C (98.4 F) 10/17/2017 5:47 PM LITHOGRAPHING MACHINE OPERATOR Respiratory Rate 16 10/17/2017 5:47 PM LITHOGRAPHING MACHINE OPERATOR Oxygen Saturation 98% 10/17/2017 5:47 PM LITHOGRAPHING MACHINE OPERATOR Inhaled Oxygen Concentration - - Weight 59 kg (130 lb) 10/17/2017 5:47 PM LITHOGRAPHING MACHINE OPERATOR Height 157.5 cm (5' 2) 10/17/2017 5:47 PM LITHOGRAPHING MACHINE OPERATOR Body Mass Index 23.78 10/17/2017 5:47 PM LITHOGRAPHING MACHINE OPERATOR Plan of Treatment Health Maintenance Due Date [...] this topic Insurance [employer] Care Teams Durable Medical Equipment Technician Relationship Specialty Start Date End Date Raza Romero MD PCP - General Endocrinology 10/23/16
--- OUTSIDE RECORDS SUMMARY | 2025-05-24 17:38 | XMS_ITS | Clinical Summary ---
Author Organization [facility] Address [facility] [place] [address] Care Team Providers Care Veneer Trimmer Name Role Phone Unavailable Primary Care Provider [...]
--- OUTSIDE RECORDS SUMMARY | 2025-05-24 17:39 | XMS_ITS | Encounter Summary ---
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
--- OUTSIDE RECORDS SUMMARY | 2025-05-24 17:39 | XMS_ITS | Encounter Summary ---
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 Gender Identity Female 02/14/2021 8:37 AM CDT Sexual Orientation Straight 02/14/2021 8: 37 AM CDT documented as of this encounter Plan of Treatment Not on file documented as of this encounter Procedures Procedure Name Priority Date/Time Associated Diagnosis Comments SCAN - RADIOLOGY/IMAGING 05/21/2025 1:37 PM CDT documented in this encounter Results * SCAN - RADIOLOGY/IMAGING (05/21/2025 1:37 PM CDT) Anatomical Region Laterality Modality Other Sofie Rodriguez INSURANCE ADVISOR Final Re sult documented in this encounter Visit Diagnoses Not on filedocumented in this encounter Care Teams Educational Assistant Relationship Specialty Start Date End Date Aden Lopez MD PCP - General Internal Medicine 06/11/20 documented as of this encounter
--- OUTSIDE RECORDS SUMMARY | 2025-05-24 17:39 | XMS_ITS | Encounter Summary ---
Author Organization 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
--- OUTSIDE RECORDS SUMMARY | 2025-05-24 17:39 | XMS_ITS | Encounter Summary ---
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
--- OUTSIDE RECORDS SUMMARY | 2025-05-24 17:39 | XMS_ITS | Encounter Summary ---
Author Organization 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
--- OUTSIDE RECORDS SUMMARY | 2025-05-24 17:39 | XMS_ITS | Clinical Summary ---
Author Organization [facility] Address [address] [place] [phone] Care Team Providers Care Photo Mask Processor Name Role Phone Aden Lopez MD Primary Care Provider [phone] Allergies Active Allergy Reactions Criticality Noted Date [...] Restasis 0.05 % ophthalmic emulsion 4 Active bkpkklcl-hfw-fz on-FA-vit K-lut 8 mg iron-400 mcg-50 mcg [...] by mouth daily 30 tablet 5 Active Additional Information Patient not taking.Reported on 05/20/2025 ibandronate (BONIVA) 150 mg tablet 5 Active ciprofloxacin (CIPRO) 500 mg tablet Take 1 tablet (500 mg total) by mouth 2 (two) times a day 5 Active metroNIDAZOLE (FLAGYL) 500 mg tablet Take 1 tablet (500 mg total) by mouth 4 (four) times a day 5 Active Active Problems Problem Noted Date [...] ordered. 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 Will check CBC and urinalysis. 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 History of left breast cancer 02/17/2021 Assessment [...] Encounters Date Type Department Care Team Description 05/22/2025 7:26 AM CDT - 05/22/2025 11:59 PM CDT Hospital Encounter [facility] [address] [place] [id number] Abdominal pain Discharge Disposition: Discharge to home or self care 05/21/2025 Orders Only [facility] [address] [place] [address] [address] [place] [phone] Sofie Rodriguez NP 05/20/2025 3:30 PM CDT Lab [facility] [address] [place] [phone] Abdominal pain 05/20/2025 11:15 AM CDT Office Visit [facility] [address] [place] [address] [place] [phone] Sofie Rodriguez, VLADIMIR Abdominal pain (Primary Dx) 05/20/2025 Results Follow-Up [facility] [address] [place] [phone] Sofie Rodriguez, VLADIMIR Urinalysis reflex to microscopic and culture Urine, Lipase, Amylase, Additional followed-up results: 6 05/15/2025 Results Follow-Up [facility] [address] [phone] Hermilo Lamas NP Urine culture Urine, clean voided 05/13/2025 3:15 PM CDT Office Visit [facility] [address] [phone] Che Ahuja NP Abdominal pain (Primary Dx); Left lower quadrant abdominal pain 05/13/2025 2:52 PM CDT - 05/13/2025 11:59 PM CDT Hospital Encounter [facility] [address] [place], [place] [id number] Abdominal pain; Left lower quadrant abdominal pain Discharge Disposition: Discharge to home or self care 02/22/2025 Orders Only [facility] [address] [phone] Aden Lopez MD from Last 3 [...] Bivalent Vaccine 10 mcg/0.2 mL (6 MOS-5 YRS)-[place] 07/12/2022 Pneumococcal Conjugate Pcv20 01/03/2023 ZOSTER Recombinant [...] on file 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 Gender Identity Female 02/14/2021 8:37 AM CDT Sexual Orientation Straight 02/14/2021 8: 37 AM CDT Obstetrics History Last Filed Vital Signs Vital Sign Reading Time Taken Comments Blood Pressure 129/75 05/20/2025 11:27 AM CDT Pulse 82 05/20/2025 11:27 AM CDT Temperature 36.7 C (98.1 F) 05/13/2025 2:43 PM CDT Respiratory Rate 20 05/13/2025 2:43 PM CDT Oxygen Saturation 98% 05/20/2025 11:27 AM CDT Inhaled Oxygen Concentration - - Weight 59.4 kg (131 lb) 05/20/2025 11:27 AM CDT Height 152.4 cm (5') 05/20/2025 11:27 AM CDT Body Mass Index 25.58 05/20/2025 11:27 AM CDT Plan of Treatment Health Maintenance Due Date Last Done Comments Depression Screening 1945 Hepatitis C Screening 1945 Hepatitis B Screening 1963 Well Visit 65+ 12/24/2011 DTaP/Tdap/Td Vaccine (2 - Td or Tdap) 03/07/2018 03/07/2008 Fall Risk Assessment 02/18/2022 02/18/2021 Osteoporosis Screening-Bone Density Scan 11/26/2024 11/26/2022, 11/07/2020 Covid-19 Vaccine (2024-09 6 season) 2025 06/07/2023, 07/12/2022, 07/12/2022, Additional history exists Influenza Vaccine (#1) 2025 , 07/14/2023, 07/05/2022, Additional history exists Colon Cancer Screening-CT Colonography Discontinued 01/07/2019 Colon Cancer Screening-Colonoscopy Discontinued 01/07/2019 Colon Cancer Screening-DNA Stool Discontinued 01/08/20 Colon Cancer Screening-FIT Discontinued 01/07/2019 Colon Cancer [...] - DEVICE Routine 05/22/2025 7:38 AM CDT SCAN - RADIOLOGY/IMAGING 05/21/2025 1:37 PM CDT EGFR Routine 05/20/2025 12:42 PM CDT Abdominal pain URINALYSIS, MICROSCOPIC ONLY Routine 05/20/2025 12:42 PM CDT Abdominal pain DIFFERENTIAL AUTO Routine 05/20/2025 12: 42 PM CDT Abdominal pain CBC WITH AUTO DIFFERENTIAL Routine 05/20/2025 12:42 PM CDT Abdominal pain COMPREHENSIVE METABOLIC PANEL Routine 05/20/2025 12:42 PM CDT Abdominal pain AMYLASE Routine 05/20/2025 12:42 PM CDT Abdominal pain LIPASE Routine 05/20/2025 12:42 PM CDT Abdominal pain URINALYSIS AND REFLEX TO MICROSCOPIC AND CULTURE Routine 05/20/2025 12:42 PM CDT Abdominal pain POCT URINALYSIS DIPSTICK Routine 05/13/2025 2:53 PM CDT Abdominal pain Left lower quadrant abdominal pain URINE CULTURE Routine 05/13/2025 2:52 PM CDT Abdominal pain Left lower quadrant abdominal pain SCAN - RADIOLOGY/IMAGING 02/22/2025 4:30 PM CDT SCREENING MAMMOGRAM RIGHT W KIRAN UNILATERAL ONLY Schedule Routine, Read Routine (OP Routine) 05/31/2024 11:43 AM CDT Screening mammogram, encounter for DEXA AXIAL SKELETON BONE DENSITY 1 OR MORE SITES Schedule Routine, Read Routine (OP Routine) 11/07/2020 COLONOSCOPY Routine 01/07/2019 from Last 3 Months or Most Recently Relevant to Health Maintenance Results * CT Abdomen Pelvis W Contrast [...] 7:38 AM CDT 05/22/2025 7:38 AM CDT Sofie Rodriguez NP LAB POCT ORDERABLES - DE VICE Final Result [facility] [place] [address] * SCAN - RADIOLOGY/IMAGING (05/21/2025 1:37 PM CDT) Anatomical Region Laterality Modality Other Sofie Rodriguez NP Final Re sult * (ABNORMAL) eGFR (05/20/2025 12:42 PM CDT) eGFR 22(L) >=60 mL/min/1. 73 m2 Comment: Interpretive Data Reference Interval Normal >/= 90 mL/min/1.73m2 Mildly decreased* 60 - 89 mL/min/1.73m2 Mildly to moderately decreased 45 - 59 mL/min/1.73m2 Moderately to severely decreased 30 - 44 mL/min/1.73m2 Severely decreased 15 - 29 mL/min/1.73m2 Kidney Failure < 15 mL/min/1.73m2 *Relative to young adult level Estimated glomerular filtration rate is determined by the 2020 CKD-EPI equation recommended by the National Kidney Foundation (A Unifying Approach to GFR Estimation: Recommendations of the NKF-ASK Task Force on Reassessing the Inclusion of Race in Diagnosing Kidney Disease, JASN 202). The CKD-EPI equation should not be used for patients with unstable renal function and has not been validated in children and those over 70. Current interpretive data was last reviewed 2021. Blood 05/20/2025 12:4 2 PM CDT 05/20/2025 1:52 PM CDT us Sofie Rodriguez NP LAB BLOOD ORDERABLES Fin al Result [facility] [place] [address] * Differential, auto (05/20/2025 12:42 PM CDT) Neutrophil abs 6.48 1.50 - 6.50 K/cumm Imm gran abs 0.01 0.00 - 0.10 K/cumm [facility] Lymphocyte abs 0.95 0.80 - 3.30 K/cumm [facility] Monocyte abs 0.76 0.20 - 0.80 K/cumm [facility] Eosinophil abs 0.06 0.00 - 0.50 K/cumm [facility] Basophil abs 0.04 0.00 - 0.10 K/cumm [facility] Neutrophil pct 78.1 % [facility] Comment: Interpretive Data Percent cell count reference ranges are not reported, since discordance with absolute values may lead to misinterpretation of CBC data. Current Interpretive Data was last revised on 2017. Imm gran pct 0.1 % [facility] Comment: Interpretive Data Percent cell count reference ranges are not reported, since discordance with absolute values may lead to misinterpretation of CBC data. Current Interpretive Data was last revised on 2017. Lymphocyte pct 11.4 % [facility] Comment: Interpretive Data Percent cell count reference ranges are not reported, since discordance with absolute values may lead to misinterpretation of CBC data. Current Interpretive Data was last revised on 2017. Monocyte pct 9.2 % [facility] Comment: Interpretive Data Percent cell count reference ranges are not reported, since discordance with absolute values may lead to misinterpretation of CBC data. Current Interpretive Data was last revised on 2017. Eosinophil pct 0.7 % [facility] Comment: Interpretive Data Percent cell count reference ranges are not reported, since discordance with absolute values may lead to misinterpretation of CBC data. Current Interpretive Data was last revised on 2017. Basophil pct 0.5 % [facility] Comment: Interpretive Data Percent cell count reference ranges are not reported, since discordance with absolute values may lead to misinterpretation of CBC data. Current Interpretive Data was last revised on 2017. Blood 05/20/2025 12:4 2 PM CDT 05/20/2025 1:48 PM CDT us Sofie Rodriguez OIL GAS AND PIPE TESTER LAB BLOOD ORDERABLES Fin al Result [facility] [place] [address] * (ABNORMAL) Urinalysis reflex to microscopic and culture Urine (05/20/2025 12:42 PM CDT) Color, ur Straw Yellow Clarity, ur Clear Clear [facility] Specific gravity, ur 1.007 1.003 - 1.[address] [facility] pH, urine 6.[address] [facility] Comment: Interpretive Data U rine pH is affected by diet, medications, systemic acid-base disturbances, and renal tubular function. pH may affect urinary stone formation. For example, urine pH below 6.0 may help reduce the tendency for calcium phosphate stones and pH greater than 6.0 may reduce the tendency for uric acid stone formation. Source: [facility] Current Interpretive Data was last revised on 2017 Protein, ur ql Negative Negative [facility] Glucose, ur ql Negative Negative [facility] Ketones, ur 1+(A) Negative [facility] Bilirubin, ur Negative Negative [facility] Blood, ur Negative Negative [facility] Urobilinogen, ur <2.0 <2.0 mg/dL [facility] Nitrite, ur Negative Negative [facility] Leukocyte esterase, ur Trace(A) Negative [facility] UA reflex comment Reflex to microscopic UA will be performed. [facility] Urine 05/20/2025 12:4 2 PM CDT 05/20/2025 1:48 PM CDT Sofie Rodriguez NP LAB MICROBIOLOGY - GENER AL ORDERABLES Final Result [facility] [place] [address] * CBC with auto differential (05/20/2025 12:42 PM CDT) WBC 8.30 3.80 - 9.90 K/cumm Hgb 12.8 11.9 - 15.5 g/dL [facility] Hct 37.7 35.6 - 45.5 % [facility] Plt 324 150 - 400 K/cumm [facility] MPV 10.9 9.1 - 12.[address] [facility] RBC 4.08 3.90 - 5.20 M/cumm [facility] MCV 92.4 81.3 - 96.[address] [facility] MCH 31.4 27.1 - 33.[address] [facility] MCHC 34.0 32.3 - 35.7 g/dL [facility] RDW CV 13.6 11.1 - 14.9 % [facility] RDW SD 46.5 35.7 - 48.[address] [facility] NRBC abs 0.00 0.00 - 0.01 K/cumm [facility] Blood 05/20/2025 12:4 2 PM CDT 05/20/2025 1:48 PM CDT Sofie Rodriguez OIL GAS AND PIPE TESTER LAB BLOOD ORDERABLES Fin al Result Performing Organization Address [facility] [place] [address] * (ABNORMAL) Urinalysis, microscopic only (05/20/2025 12:42 PM CDT) WBC, ur 0-5 0 - 5 /HPF RBC, ur 0-2 0 - 2 /HPF [facility] Epithelial cells, squamous, ur 1-5 0 - 5 /HPF [facility] Epithelial cells, transitional, ur 1-5 0 - 0 /HPF [facility] Bacteria, ur Trace(A) [facility] Culture Reflex Comment Reflex conditions for urine culture (WBC >10) not met. [facility] Urine 05/20/2025 12:4 2 PM CDT 05/20/2025 1:48 PM CDT Sofie Rodriguez NP LAB URINE ORDERABLES Fin al Result Performing Organization Address [facility] de Phone Number [facility] [place] [address] * Lipase (05/20/2025 12:42 PM CDT) Pathologist [facility] Lipase 29 10 - 99 Units/L Blood 05/20/2025 12:4 2 PM CDT 05/20/2025 1:48 PM CDT Sofie Rodriguez NP LAB BLOOD ORDERABLES Fin al Result Performing Organization Address [facility] de Phone Number [facility] [place] [address] * Amylase (05/20/2025 12:42 PM CDT) Amylase 51 30 - 99 Units/L Blood 05/20/2025 12:4 2 PM CDT 05/20/2025 1:48 PM CDT us Sofie Rodriguez OIL GAS AND PIPE TESTER LAB BLOOD ORDERABLES Fin al Result [facility] [place] [address] * (ABNORMAL) Comprehensive metabolic panel (05/20/2025 12:42 PM CDT) Sodium 141 135 - 145 mmol/L Potassium, pl 3.7 3.3 - 4.9 mmol/L [facility] Chloride 105 97 - 110 mmol/L [facility] CO2 25 22 - 32 mmol/L [facility] Anion gap 11 2 - 15 mmol/L [facility] BUN 19 6 - 25 mg/dL [facility] Creatinine 2.20(H) 0.60 - 1.10 mg/dL [facility] Glucose 100 70 - 199 mg/dL [facility] Comment: Interpretive Data Fasting glucose >/= 126 mg/dl is diagnostic for diabetes. Fasting is defined as no caloric intake for at least 8 hours. Fasting glucose between 100 mg/dl to 125 mg/dl is diagnostic of prediabetes. In a patient with classic symptoms of hyperglycemia or hyperglycemic crisis, a random glucose >/= 200 mg/dl is diagnostic for diabetes. In the absence of unequivocal hyperglycemia, results should be confirmed by repeat testing. The classification and Diagnosis of Diabetes Diabetes Care 2021; 46: S19-S40. Current interpretive data was last revised 2022. Calcium 9.4 8.5 - 10.3 mg/dL [facility] Bilirubin, total 0.5 0.1 - 1.2 mg/dL [facility] Protein, pl 7.3 6.5 - 8.5 g/dL [facility] Albumin 4.2 3.5 - 5.0 g/dL [facility] Alk phos 62 40 - 130 Units/L [facility] ALT 25 7 - 45 Units/L [facility] AST 32 10 - 45 Units/L [facility] Blood 05/20/2025 12:4 2 PM CDT 05/20/2025 1:48 PM CDT us Sofie Rodriguez OIL GAS AND PIPE TESTER LAB BLOOD ORDERABLES Fin al Result [facility] [place] [address] * (ABNORMAL) POCT urinalysis dipstick (05/13/2025 2:53 PM CDT) Color, Urine, POC Light Yellow Clarity, ur, POC Cloudy(A) Clear Glucose, ur, POC Negative Negative Bilirubin, ur, POC Negative Negative Ketones, ur, POC 40.(A) Negative Specific Julian, POC 1.010 1.003 - 1.030 Blood, ur, POC Non-hemolyze d, trace(A) Negative pH, ur, POC 6.0 5.0 - 8.0 Protein, ur, POC Negative Negative Urobilinogen, urine, POC 0.2 0.2 - 1.0 mg/dL Nitrite, ur, POC Negative Negative Leukocytes, ur, POC Trace(A) Negative Lot Number [id number] Urine 05/13/2025 2:53 PM CDT Che Ahuja NP POINT OF CARE TEST ORDERAB LES Final Result * Urine culture Urine, clean voided (05/13/2025 2:52 PM CDT) Report Final Report: Less than 100,000 colonies/mL (clinically insignificant growth based on current clinical standards) Comment:Testing performed by : [facility], [address] [facility], [place]., [address] Organism (CLINICALLY INSIGNIFICANT GROWTH [place] Urine, clean voided 05/13/2025 2:52 PM CDT 05/13/2025 10:38 PM CDT Narrative [facility] - 05/15/2025 7:55 AM CDT Testing performed by [facility] ([phone]) Che Ahuja NP LAB MICROBIOLOGY - GENERAL [place] [address] [place] [address] * SCAN - RADIOLOGY/IMAGING (02/22/2025 4:30 PM CDT) Anatomical Region Laterality Modality Other us Aden Lopez MD Final Result * Screening Mammogram Right W Kiran Unilateral Only (05/31/2024 11:43 AM CDT) Anatomical Region Laterality Modality Breast Right Mammography Narrative 06/01/2024 4:07 PM CDT Mammogram Technique: Right Breast Digital Breast Tomosynthesis, Unilateral C-view 2D Screening mammogram. Views obtained: right craniocaudal and right mediolateral oblique. Computer Aided Detection was performed. Mammogram Findings: The present examination has been compared to prior imaging studies performed at [facility] on 02/24/2022 and 03/31/2023, and at [facility] on 12/19/2020. There are scattered [...] compared to prior imaging studies performed at [facility] on 02/24/2022 and 03/31/2023, and at [facility] on 12/19/2020. There are scattered [...] [place] ging Narrative 11/07/2020 Pt had at [facility] Historical Provider IMG DXA PROCEDURES Final Result * Colonoscopy (01/07/2019) Anatomical Region Laterality Modality Other Narrative 01/07/[address] rhea reese in 5 years Historical Provider ENDOSCOPY PROCEDURES Janie l Result from Last 3 Months or Most Recently Relevant to [place] [address] [place] [id number] MEDICARE [employer] MEDICARE [facility] MEDICARE [facility] [place] [address] MEDICARE [facility] [employer] Advance Directives For more information, please contact: [phone] * Full Code (Latest Code Status on File) Date Activated Date Inactivated Comments 02/18/2021 9:29 AM 02/18/2021 3:47 PM Care Teams Photo Mask Processor Relationship Specialty Start Date End Date Aden Lopez MD PCP - General Internal Medicine 06/11/20
--- OUTSIDE RECORDS SUMMARY | 2025-05-24 17:39 | XMS_ITS | Clinical Summary ---
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
[2025-05-24 17:43] VITALS: BP 131/58; PULSE 77; RESP 14; TEMP 36.8; O2SAT 100
--- NOTE | 2025-05-24 17:58 | ED.DENTAL ---
HPI - Dental/Oral General Chief complaint: Dental/Oral Stated complaint: Thrush Time Seen by Provider: 05/24/25 17:48 Source: patient and RN notes reviewed Mode of arrival: ambulatory Limitations: no limitations History of Present Illness HPI Narrative: Patient presents today concerned for oral thrush. She was on an 7 day course of Cipro and Flagyl for diverticulitis and finished them within the last 3-4 days. This evening while brushing her teeth, she noticed that her tongue was coated in white. She had noted that her tongue felt a bit thick today but had not yet examined it. Denies pain. Related Data Home Medications ?Medication ?Instructions ?Recorded ?Confirmed ?Last Taken ?Type ergocalciferol (vitamin D2) 1,250 50,000 unit PO WEEKLY 05/19/22 02/28/24 Unknown History mcg (50,000 unit) capsule rosuvastatin 10 mg tablet 10 mg PO DIRECTED 05/19/22 02/28/24 Unknown History coenzyme Q10 30 mg capsule (Co 30 mg PO DAILY 06/26/23 02/28/24 Unknown History Q-10) cyclosporine 0.05 % eye drops in a 1 drp EACH EYE Q12H 06/26/23 02/28/24 Unknown History dropperette dicyclomine 10 mg capsule 10 mg PO DAILY PRN muscle spasms 06/26/23 02/28/24 Unknown History escitalopram oxalate 10 mg tablet 10 mg PO DAILY 06/26/23 02/28/24 Unknown History multivit with minerals-iron 18 1 tablet PO DAILY 06/26/23 02/28/24 Unknown History mg-folic ac 400 mcg-vit K 25 mcg tablet (Adults Multivitamin) magnesium citrate 125 mg capsule 250 mg PO DAILY 02/28/24 02/28/24 Unknown History Allergies Allergy/AdvReac Type Severity Reaction Status Date / Time Penicillins Allergy Unknown Other Verified 05/24/25 17:42 Sulfa (Sulfonamide Allergy Unknown rash Verified 05/24/25 17:42 Antibiotics) sulfanilamide Allergy Unknown Other Verified 05/24/25 17:42 [facility] Past Medical History Medical History (Updated 05/24/25 @ 18:01 by Ольга Malave, [facility], ) Diverticulitis Intraductal papillary mucinous tumor Cancer of left breast Mixed hyperlipidemia Lymphedema Surgical History Surgical History (Reviewed 05/24/25 @ 18:01 by Ольга Malave, [facility], ) Status post transverse rectus abdominis muscle flap breast reconstruction (TRAM) Flap History of cataract extraction History of bunionectomy of both great toes History of left mastectomy Family History Family History (Reviewed 05/24/25 @ 18:01 by Ольга Malave, [facility], ) Mother Family history of pancreatic cancer Family history of dementia Father Family history of heart disease in male family member before age 55 Other Family history of arthritis Hypertension Social History Social History (Reviewed 05/24/25 @ 18:01 by Ольга Malave, [facility], ) Social History: Surrogate medical decision maker: Douglas Blunt, spouse. Code status: Full code. Smoking status: Never smoker Alcohol intake: never Substance use: never Substance use type: does not use Lack of Transportation: No Lack of Food: Never True Current Housing: I Have Housing Concerned About Future Housing: No Difficulty Paying Gas/Electric Bills: No Difficulty Paying for Meds: No Currently Unemployed: No Education: High School Diploma/GED Difficulty w/ Childcare or Family Care: No Living arrangements: with family Additional living arrangements comments: Lives with spouse in [place]. They have 3 children. Additional occupation/education comments: Retired. Worked as a [employer] for many years and retired from [employer]. Spiritual care concerns: No Comments At time of signature, I have reviewed and agree with nursing past medical, surgical, social and family history unless otherwise noted. Please see nursing chart for further information. There is no relevant family history pertinent to the presenting complaint Exam Narrative: GENERAL: Well-appearing, well-nourished, and in no acute distress. HEAD: Normocephalic, atraumatic. EYES: EOMI. No redness or drainage. Conjunctivae normal. ENT: Mucous membranes pink and moist. Tongue is coated in white/church. When scraped, there is a mildly erythematous base. NECK: Normal AROM. CHEST: No respiratory distress. EXTREMITIES: Normal range of motion. No edema. SKIN: Warm, dry, no rash. Capillary refill normal. Normal skin turgor. NEURO: No focal deficits. Alert and oriented x3. Gait steady. PSYCH: Normal affect. No signs of depression or anxiety. Course Course Level of Care: Express Care Visit Vital Signs Vital signs: Vital Signs Temperature 98.2 F 05/24/25 17:43 Pulse Rate 77 05/24/25 17:43 Respiratory Rate 14 05/24/25 17:43 Blood Pressure 131/58 L 05/24/25 17:43 Pulse Oximetry 100 05/24/25 17:43 Oxygen Delivery Room Air 05/24/25 17:43 Temperature 98.2 F 05/24/25 17:43 Pulse Rate 77 05/24/25 17:43 Respiratory Rate 14 05/24/25 17:43 Blood Pressure 131/58 L 05/24/25 17:43 Pulse Oximetry 100 05/24/25 17:43 Oxygen Delivery Room Air 05/24/25 17:43 Reviewed MDM - Dental/Oral MDM Narrative Medical decision making narrative: 71-year-old female patient presents today with concerns of thrush on tongue. Patient noted a white coating this evening while brushing her teeth and states that her tongue felt thick today. Finished a 7 day course of Cipro and Flagyl for diverticulitis 3-4 days ago. Denies pain. Upon exam, there is a white coating to the tongue with an erythematous base when scraped. Patient will be prescribed clotrimazole troches. VSS. Patient agrees with plan. Anticipatory guidance given. Differential Diagnosis Differential diagnosis: Likely other (thrush, dehydration , leukoplakia) Critical Care Time Critical Care Time Critical Care Time: No Discharge Plan Discharge Clinical Impression: Oral thrush Patient Disposition: Home Condition: Stable Instructions: Oral Candidiasis (ED) Additional Instructions: Please use the clotrimazole as directed. Follow up with your PCP next week if symptoms are not improving. Patient Language: Faroese Prescriptions: New clotrimazole 10 mg malcolm See Rx Instructions .ROUTE .COMPLEX Qty: 35 0RF Rx Instructions: 1 malcolm dissolved slowly 5 times daily for 7 days No Action ergocalciferol (vitamin D2) 1,250 mcg (50,000 unit) capsule 50,000 unit PO WEEKLY Rx Instructions: mondays rosuvastatin 10 mg tablet 10 mg PO DIRECTED Rx Instructions: , , Sa, Lamas @[facility] escitalopram oxalate 10 mg tablet 10 mg PO DAILY cyclosporine 0.05 % dropperette 1 drp EACH EYE Q12H Adults Multivitamin 18 mg iron-400 mcg-25 mcg Tablet 1 tablet PO DAILY coenzyme Q10 [Co Q-10] 30 mg Capsule 30 mg PO DAILY dicyclomine 10 mg capsule 10 mg PO DAILY PRN (Reason: muscle spasms) magnesium citrate 125 mg Capsule 250 mg PO DAILY ciprofloxacin HCl 500 mg tablet 500 mg PO Q12H 7 Days Qty: 14 0RF metronidazole 500 mg tablet 500 mg PO Q6H 7 Days Qty: 28 0RF ibuprofen 600 mg tablet 600 mg PO TID PRN (Reason: pain) Qty: 30 0RF acetaminophen 500 mg capsule 1,000 mg PO Q6H PRN (Reason: pain) Qty: 30 0RF oxycodone 5 mg tablet 5 mg PO Q8H PRN (Reason: pain) Qty: 7 0RF Follow-up/Referrals: John,Aden Woo MD [Primary Care Provider] Time of Disposition: 17:57
== END 2025-05-24 18:02 | disposition home or self-care (01) ==
PROVIDERS: Emergency Provider Nurse Practitioner; PCP Internal Medicine
DX: B37.0 Candidal stomatitis (principal); E78.2 Mixed hyperlipidemia; Z85.3 Personal history of malignant neoplasm of breast
CPT/HCPCS: 99213; G0463